=== PATIENT | female | born 1935 | race Two or more races ===

== ENCOUNTER 2018-01-29 18:59 | Inpatient (IN) | payer MEDICAID ==
[~2018-01-29] VITALS: Ht 157.5 cm; Wt 54.4 kg
[2018-01-29] MEDS ORDERED: LISINOPRIL5 MG ORAL (19:12)
[2018-01-29] MEDS ORDERED: ASPIRIN81 MG ORAL (19:12)
[2018-01-29] MEDS ORDERED: METOPROLOL TAR100 M1 ORAL (19:12)
[2018-01-29] MEDS ORDERED: LIPITOR40 MG ORAL (19:12)
[2018-01-29] MEDS ORDERED: AMLODIPINE BESY10 MG ORAL (19:12)
[2018-01-29] MEDS ORDERED: CLOPIDOGREL75 MG ORAL (19:12)
--- NOTE | 2018-01-29 19:43 | Emergency Room Report ---
History of Present Illness General Chief Complaint: Syncope Source: Patient, Family Member, EMS Present Illness HPI 82-year-old female with pmhx of stroke with left-sided weakness p/w syncopal episode. Patient vomited once before syncope Pt states feeling lightheadedness/nauseous before event. witnessed, <30 sec, didnt hit the ground, pt was in her wheelchair Denies sob, palpitations, or chest pain before event. Daughter states that she was in her normal state of health this afternoon Currently patient is only complaining of nausea, and epigastric pain Allergies: Coded Allergies: No Known Allergies (Unverified , 01/29/18) Patient History Past Medical History: see triage record Past Surgical History: none Pertinent Family History: none Reviewed Nursing Documentation: PMH: Agreed, PSxH: Agreed Nursing Documentation-PMH Hx Hypertension: Yes Hx Cerebrovascular Accident: Yes - LEFT SIDED DEFICIT Review of Systems All Other Systems: negative except mentioned in HPI Physical Exam Vital Signs Date Time Temp Pulse Resp B/P (MAP) Pulse Ox O2 Delivery O2 Flow Rate FiO2 01/29/18 19:02 98.1 104 16 122/72 98 Room Air 98.1 Sp02 EP Interpretation: reviewed, normal General Appearance: mild distress, thin, Chronically Ill Head: normocephalic, atraumatic Eyes: bilateral eye normal inspection, bilateral eye PERRL, bilateral eye EOMI ENT: normal ENT inspection, normal pharynx, normal voice, moist mucus membranes Neck: normal inspection, full range of motion, supple Respiratory: normal inspection, lungs clear, normal breath sounds, no respiratory distress, no retraction, no wheezing, speaking full sentences, chest symmetrical Cardiovascular #1: normal inspection, regular rate, rhythm, no edema, normal capillary refill Cardiovascular #2: 2+ radial (R), 2+ radial (L) Gastrointestinal: other - epigastric tenderness no guarding or rigidity Musculoskeletal: normal inspection, back normal, normal range of motion, non- tender Neurologic: other - aox2 moves R side spont Psychiatric: normal inspection, judgement/insight normal, memory normal Skin: normal inspection, normal color, no rash, warm/dry, well hydrated, normal turgor Medical Decision Making Diagnostic Impression: Primary Impression: Syncope Additional Impression: Vomiting ER Course 82-year-old female with syncopal episode DDX: Vasovagal vs. orthostatic / hypovolemic/dehydration vs. cardiac arrhythmia (SVT , Afib) vs. cardiac (, ACS) vs. PE vs. metabolic (hypoglycemia, hypoxia), vs neuro (seizure, CVA, intracranial bleed) Plan: bgm, cbc, bmp, ekg, cxr consider IVF ER course: Patient has remained stable during ED stay. given zofran. No further syncopal episodes Disposition: Patient requires admission to telemetry. D/W hospitalist Dr Lima Please note that this Emergency Department Report was dictated using UCROOallergist/immunologist technology software, occasionally this can lead to erroneous entry secondary to interpretation by the dictation equipment EKG Diagnostic Results EP Interpretation: Yes Rate: normal Rhythm: NSR ST Segments: TW flattening V2 V3 ASA given to patient: No Rhythm Strip EP Interpretation: Yes Rate: 70 Rhythm: NSR, no PVCs, no ectopy Chest X-ray CXR: Ordered: Yes 1 view Indication: Syncope EP interpretation: Yes Interpretation: No consolidation, no effusion, no PTX, no acute cardiopulmonary disease Impression: No acute disease Electronically signed by Akash Ga MD Laboratory Tests Test 01/29/18 20:40 01/29/18 21:48 01/30/18 10:30 White Blood Count 15.4 K/UL (4.8-10.8) H 13.0 K/UL (4.8-10.8) H Red Blood Count 4.01 M/UL (4.20-5.40) L 3.76 M/UL (4.20-5.40) L Hemoglobin 13.2 G/DL (12.0-16.0) 12.0 G/DL (12.0-16.0) Hematocrit 35.2 % (37.0-47.0) L 33.2 % (37.0-47.0) L Mean Corpuscular Volume 88 FL (80-99) 88 FL (80-99) Mean Corpuscular Hemoglobin 32.9 PG (27.0-31.0) H 31.9 PG (27.0-31.0) H Mean Corpuscular Hemoglobin Concent 37.5 G/DL (32.0-36.0) H 36.0 G/DL (32.0-36.0) Red Cell Distribution Width 11.2 % (11.6-14.8) L 11.4 % (11.6-14.8) L Platelet Count 317 K/UL (150-450) 289 K/UL (150-450) Mean Platelet Volume 7.9 FL (6.5-10.1) 7.7 FL (6.5-10.1) Neutrophils (%) (Auto) % (45.0-75.0) 82.8 % (45.0-75.0) H Lymphocytes (%) (Auto) % (20.0-45.0) 11.3 % (20.0-45.0) L Monocytes (%) (Auto) % (1.0-10.0) 5.1 % (1.0-10.0) Eosinophils (%) (Auto) % (0.0-3.0) 0.2 % (0.0-3.0) Basophils (%) (Auto) % (0.0-2.0) 0.6 % (0.0-2.0) Differential Total Cells Counted 100 Neutrophils % (Manual) 87 % (45-75) H Lymphocytes % (Manual) 9 % (20-45) L Monocytes % (Manual) 4 % (1-10) Eosinophils % (Manual) 0 % (0-3) Basophils % (Manual) 0 % (0-2) Band Neutrophils 0 % (0-8) Platelet Estimate Adequate Platelet Morphology Normal Red Blood Cell Morphology Normal Sodium Level 138 MMOL/L (136-145) 140 MMOL/L (136-145) Potassium Level 4.6 MMOL/L (3.5-5.1) 4.5 MMOL/L (3.5-5.1) Chloride Level 104 MMOL/L (98-107) 104 MMOL/L (98-107) Carbon Dioxide Level 24 MMOL/L (21-32) 26 MMOL/L (21-32) Anion Gap 10 mmol/L (5-15) 10 mmol/L (5-15) Blood Urea Nitrogen 19 mg/dL (7-18) H 17 mg/dL (7-18) Creatinine 0.8 MG/DL (0.55-1.30) 1.0 MG/DL (0.55-1.30) Estimate Glomerular Filtration Rate mL/min (>60) mL/min (>60) Glucose Level 153 MG/DL (74-106) H 151 MG/DL (74-106) H Calcium Level 9.5 MG/DL (8.5-10.1) 9.5 MG/DL (8.5-10.1) Total Bilirubin 0.6 MG/DL (0.2-1.0) 0.5 MG/DL (0.2-1.0) Aspartate Amino Transferase (AST) 55 U/L (15-37) H 28 U/L (15-37) Alanine Aminotransferase (ALT) 84 U/L (12-78) H 66 U/L (12-78) Alkaline Phosphatase 79 U/L (46-116) 75 U/L (46-116) Troponin I 0.008 ng/mL (0.000-0.056) 0.019 ng/mL (0.000-0.056) Pro-B-Type Natriuretic Peptide 433 pg/mL (0-125) H Total Protein 7.3 G/DL (6.4-8.2) 7.0 G/DL (6.4-8.2) Albumin 3.0 G/DL (3.4-5.0) L 2.9 G/DL (3.4-5.0) L Globulin 4.3 g/dL 4.1 g/dL Albumin/Globulin Ratio 0.7 (1.0-2.7) L 0.7 (1.0-2.7) L Urine Color Yellow Urine Appearance Slightly cloudy Urine pH 5 (4.5-8.0) Urine Specific [place] 1.015 (1.005-1.035) Urine Protein 1+ (NEGATIVE) H Urine Glucose (UA) Negative (NEGATIVE) Urine Ketones Negative (NEGATIVE) Urine Occult Blood 1+ (NEGATIVE) H Urine Nitrite Positive (NEGATIVE) H Urine Bilirubin Negative (NEGATIVE) Urine Urobilinogen Normal MG/DL (0.0-1.0) Urine Leukocyte Esterase 3+ (NEGATIVE) H Urine RBC 0-2 /HPF (0 - 2) Urine WBC 2-4 /HPF (0 - 2) Urine Squamous Epithelial Cells Few /LPF (NONE/OCC) Urine Amorphous Sediment Few /LPF (NONE) H Urine Bacteria Few /HPF (NONE) Prothrombin Time 10.7 SEC (9.30-11.50) Prothrombin Time INR 1.0 (0.9-1.1) PTT 25 SEC (23-33) Triglycerides Level 74 MG/DL (30-150) Cholesterol Level 79 MG/DL (< 200) LDL Cholesterol 39 mg/dL (<100) HDL Cholesterol 31 MG/DL (40-60) L Cholesterol/HDL Ratio 2.5 (3.3-4.4) L Thyroid Stimulating Hormone (TSH) 1.109 uiU/mL (0.358-3.740) Last Vital Signs Date Time Temp Pulse Resp B/P (MAP) Pulse Ox O2 Delivery O2 Flow Rate FiO2 01/29/18 19:02 98.1 104 16 122/72 98 Room Air 98.1 Disposition: ADMITTED INPATIENT Condition: Serious Akash Ga M.D. Jan 29, 2018 19:43
[2018-01-29 21:01] LABS: HEMATOCRIT 35.2 % (37.0-47.0); HEMOGLOBIN 13.2 G/DL (12.0-16.0); MEAN CORPUSCULAR VOLUME 88 FL (80-99); PLATELET COUNT 317 K/UL (150-450); RED BLOOD COUNT 4.01 M/UL (4.20-5.40); RED CELL DISTRIBUTION WIDTH 11.2 % (11.6-14.8); WHITE BLOOD COUNT 15.4 K/UL (4.8-10.8)
[2018-01-29 21:08] LABS: ANION GAP 10 mmol/L (5-15); BLOOD UREA NITROGEN 19 mg/dL (7-18); CALCIUM 9.5 MG/DL (8.5-10.1); CARBON DIOXIDE 24 MMOL/L (21-32); CHLORIDE 104 MMOL/L (98-107); CREATININE 0.8 MG/DL (0.55-1.30); POTASSIUM 4.6 MMOL/L (3.5-5.1); SODIUM 138 MMOL/L (136-145)
[2018-01-29 21:19] LABS: ALANINE AMINOTRANSFERASE 84 U/L (12-78); ALBUMIN/GLOBULIN RATIO 0.7 (1.0-2.7); ALKALINE PHOSPHATASE 79 U/L (46-116); ASPARTATE AMINO TRANSFERASE 55 U/L (15-37); BILIRUBIN,TOTAL 0.6 MG/DL (0.2-1.0)
[2018-01-29] MEDS ORDERED: Albuterol/Ipratropium 3ml neb HHN PRN (21:30)
[2018-01-29] MEDS ORDERED: Nitroglycerin Subl 0.4mg tab SL PRN (21:30)
[2018-01-29] MEDS ORDERED: LORazepam Inj 2mg/ml 1ml IV PRN (21:30)
[2018-01-29] MEDS ORDERED: Morphine Sulfate 2mg/ml Inj IVP PRN (21:30)
[2018-01-29] MEDS ORDERED: Mylanta II UD 30ml ORAL PRN (21:30)
[2018-01-29] MEDS ORDERED: Miralax 17gm pkt ORAL PRN (21:30)
[2018-01-29 22:27] LABS: BILIRUBIN, URINE NEGATIVE (NEGATIVE); GLUCOSE, URINE (UA) NEGATIVE (NEGATIVE); KETONES,URINE NEGATIVE (NEGATIVE); LEUKOCYTE ESTERASE ,URINE 3+ (NEGATIVE); NITRITE,URINE POSITIVE (NEGATIVE); PH,URINE 5 (4.5-8.0); PROTEIN,URINE 1+ (NEGATIVE); UROBILINOGEN,URINE NORMAL MG/DL (0.0-1.0)
[2018-01-29 22:32] LABS: COLOR,URINE YELLOW
[2018-01-29 22:33] LABS: APPEARANCE,URINE SLIGHTLY CLOUDY
[2018-01-30 00:26] VITALS: BP 115/49
[2018-01-30 03:50] VITALS: BP 122/47
[2018-01-30 04:50] VITALS: BP 127/78
[2018-01-30] MEDS: Heparin 5000 units/ml inj SUBQ SCH ×2 (09:00→21:19)
[2018-01-30] MEDS: Lisinopril 2.5mg tab ORAL SCH (09:00)
--- NOTE | 2018-01-30 09:13 | History and Physical ---
History of Present Illness General Date patient seen: Jan 30, 2018 Reason for Hospitalization: Syncope Present Illness HPI 82-year-old female with pmhx of stroke with left-sided weakness BIBA with CC of syncopal episode. Patient vomited once before syncope. Pt states feeling lightheadedness/nauseous before event. Currently patient is only complaining of nausea, and epigastric pain. Allergies: Coded Allergies: No Known Allergies (Unverified , 01/29/18) Medication History Scheduled Amlodipine Besylate* (Amlodipine Besylate*), 10 MG ORAL DAILY, (Reported) Aspirin* (Aspirin*), 81 MG ORAL DAILY, (Reported) Atorvastatin Calcium* (Lipitor*), 40 MG ORAL BEDTIME, (Reported) Clopidogrel* (Clopidogrel*), 75 MG ORAL DAILY, (Reported) Lisinopril (Lisinopril*), 5 MG ORAL DAILY, (Reported) Metoprolol Tartrate* (Metoprolol Tartrate*), 100 MG ORAL EVERY 12 HOURS, ( Reported) Patient History Healthcare decision maker Resuscitation status Advanced Directive on File Past Medical/Surgical History Past Medical/Surgical History: (1) History of CVA (cerebrovascular accident) (2) Hypertension Review of Systems Constitutional: Reports: malaise Eye: Reports: no symptoms ENT: Reports: no symptoms Respiratory: Reports: no symptoms Physical Exam General Appearance: cachetic Lines, tubes and drains: peripheral HEENT: normocephalic, atraumatic Neck: non-tender, normal alignment Respiratory/Chest: chest wall non-tender, lungs clear Breasts: no masses Cardiovascular/Chest: normal peripheral pulses Abdomen: normal bowel sounds, non tender Genitourinary/Rectal: normal rectal exam Extremities: normal range of motion Skin Exam: normal pigmentation 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 Last 24 Hour Vital Signs Date Time Temp Pulse Resp B/P (MAP) Pulse Ox O2 Delivery O2 Flow Rate FiO2 01/30/18 04:50 98.2 102 18 127/78 98 Room Air 98.2 01/30/18 04:45 93 01/30/18 04:35 98.1 85 17 122/47 96 Room Air 98.1 01/30/18 03:50 85 17 122/47 96 Room Air 01/30/18 00:26 98.1 67 18 115/49 98 Room Air 98.1 01/29/18 19:02 98.1 104 16 122/72 98 Room Air 98.1 Intake and Output 01/29/18 01/30/18 19:00 07:00 Intake Total 0 ml Balance 0 ml Intake Oral 0 ml # Voids 4 Laboratory Tests Test 01/29/18 20:40 01/29/18 21:48 White Blood Count 15.4 K/UL (4.8-10.8) H Red Blood Count 4.01 M/UL (4.20-5.40) L Hemoglobin 13.2 G/DL (12.0-16.0) Hematocrit 35.2 % (37.0-47.0) L Mean Corpuscular Volume 88 FL (80-99) Mean Corpuscular Hemoglobin 32.9 PG (27.0-31.0) H Mean Corpuscular Hemoglobin Concent 37.5 G/DL (32.0-36.0) H Red Cell Distribution Width 11.2 % (11.6-14.8) L Platelet Count 317 K/UL (150-450) Mean Platelet Volume 7.9 FL (6.5-10.1) Neutrophils (%) (Auto) % (45.0-75.0) Lymphocytes (%) (Auto) % (20.0-45.0) Monocytes (%) (Auto) % (1.0-10.0) Eosinophils (%) (Auto) % (0.0-3.0) Basophils (%) (Auto) % (0.0-2.0) Differential Total Cells Counted 100 Neutrophils % (Manual) 87 % (45-75) H Lymphocytes % (Manual) 9 % (20-45) L Monocytes % (Manual) 4 % (1-10) Eosinophils % (Manual) 0 % (0-3) Basophils % (Manual) 0 % (0-2) Band Neutrophils 0 % (0-8) Platelet Estimate Adequate Platelet Morphology Normal Red Blood Cell Morphology Normal Sodium Level 138 MMOL/L (136-145) Potassium Level 4.6 MMOL/L (3.5-5.1) Chloride Level 104 MMOL/L (98-107) Carbon Dioxide Level 24 MMOL/L (21-32) Anion Gap 10 mmol/L (5-15) Blood Urea Nitrogen 19 mg/dL (7-18) H Creatinine 0.8 MG/DL (0.55-1.30) Estimat Glomerular Filtration Rate mL/min (>60) Glucose Level 153 MG/DL (74-106) H Calcium Level 9.5 MG/DL (8.5-10.1) Total Bilirubin 0.6 MG/DL (0.2-1.0) Aspartate Amino Transf (AST/SGOT) 55 U/L (15-37) H Alanine Aminotransferase (ALT/SGPT) 84 U/L (12-78) H Alkaline Phosphatase 79 U/L (46-116) Troponin I 0.008 ng/mL (0.000-0.056) Pro-B-Type Natriuretic Peptide 433 pg/mL (0-125) H Total Protein 7.3 G/DL (6.4-8.2) Albumin 3.0 G/DL (3.4-5.0) L Globulin 4.3 g/dL Albumin/Globulin Ratio 0.7 (1.0-2.7) L Urine Color Yellow Urine Appearance Slightly cloudy Urine pH 5 (4.5-8.0) Urine Specific [place] 1.015 (1.005-1.035) Urine Protein 1+ (NEGATIVE) H Urine Glucose (UA) Negative (NEGATIVE) Urine Ketones Negative (NEGATIVE) Urine Occult Blood 1+ (NEGATIVE) H Urine Nitrite Positive (NEGATIVE) H Urine Bilirubin Negative (NEGATIVE) Urine Urobilinogen Normal MG/DL (0.0-1.0) Urine Leukocyte Esterase 3+ (NEGATIVE) H Urine RBC 0-2 /HPF (0 - 2) Urine WBC 2-4 /HPF (0 - 2) Urine Squamous Epithelial Cells Few /LPF (NONE/OCC) Urine Amorphous Sediment Few /LPF (NONE) H Urine Bacteria Few /HPF (NONE) Height (Feet): 5 Height (Inches): 2.00 Weight (Pounds): 120 Medications Current Medications Medications (Trade) Dose Ordered Sig/[place] Route PRN Reason Start Time Stop Time Status Last Admin Dose Admin Acetaminophen (Tylenol) 650 mg Q4H PRN ORAL fever 01/29/18 21:30 02/28/18 21:29 Al Hydroxide/Mg Hydroxide (Mylanta II) 30 ml Q6H PRN ORAL dyspepsia 01/29/18 21:30 02/28/18 21:29 Albuterol/ Ipratropium (Albuterol/ Ipratropium) 3 ml EVERY 4 HOURS PRN HHN Shortness of Breath 01/29/18 21:30 02/03/18 21:29 Amlodipine Besylate (Norvasc) 10 mg DAILY ORAL 01/30/18 09:00 03/01/18 08:59 Atorvastatin Calcium (Lipitor) 40 mg BEDTIME ORAL 01/30/18 21:00 03/01/18 20:59 Clopidogrel Bisulfate (Plavix) 75 mg DAILY ORAL 01/30/18 09:00 03/01/18 08:59 Dextrose (Dextrose 50%) STAT PRN IV Hypoglycemia 01/29/18 21:30 02/28/18 21:29 Heparin Sodium (Porcine) (Heparin 5000 units/ml) 5,000 units EVERY 12 HOURS SUBQ 01/30/18 09:00 03/01/18 08:59 Lisinopril (Zestril) 5 mg DAILY ORAL 01/30/18 09:00 03/01/18 08:59 Lorazepam (Ativan 2mg/ml 1ml) 0.5 mg Q4H PRN IV For Anxiety 01/29/18 21:30 02/05/18 21:29 Metoprolol Tartrate (Lopressor) 100 mg EVERY 12 HOURS ORAL 01/30/18 09:00 03/01/18 08:59 Morphine Sulfate (Morphine Sulfate) 1 mg EVERY 4 HOURS PRN IVP For Pain 7-10 01/29/18 21:30 02/05/18 21:29 Nitroglycerin (Ntg) 0.4 mg Q5M X 3 DOSES PRN SL Prn Chest Pain 01/29/18 21:30 02/28/18 21:29 Ondansetron HCl (Zofran) 4 mg Q6H PRN IVP Nausea & Vomiting 01/29/18 21:30 02/28/18 21:29 Polyethylene Glycol (Miralax) 17 gm HSPRN PRN ORAL Constipation 01/29/18 21:30 02/28/18 21:29 Temazepam (Restoril) 15 mg HSPRN PRN ORAL Insomnia 01/29/18 21:30 02/05/18 21:29 Assessment/Plan Problem List: (1) Syncope ICD Codes: R55 - Syncope and collapse SNOMED: 196403683 (2) Vomiting ICD Codes: R11.10 - Vomiting, unspecified SNOMED: 693031936 (3) Epigastric pain ICD Codes: R10.13 - Epigastric pain SNOMED: 75394633 (4) Hypertension ICD Codes: I10 - Essential (primary) hypertension SNOMED: 80557596 (5) History of CVA (cerebrovascular accident) ICD Codes: Z86.73 - Personal history of transient ischemic attack (TIA), and cerebral infarction without residual deficits SNOMED: 305186397 Assessment/Plan telemetry monitoring check echo, doppler of carotid artery cardio to see GI evaluation symptomatic treatment. ID evaluation for possible UTI TOBIAS CERRATO Jan 30, 2018 09:13
--- NOTE | 2018-01-30 10:36 | Diagnostic Imaging Report ---
Indication: Chest pain Comparison: None A single view chest radiograph was obtained. Findings: No definite infiltrate or pulmonary vascular congestion identified. The heart is borderline enlarged. The aorta is mildly enlarged consistent with atherosclerotic vascular disease. The bones are osteopenic. Impression: No acute disease
[2018-01-30 10:53] LABS: BASOPHILS % (AUTO) 0.6 % (0.0-2.0); EOSINOPHILS % (AUTO) 0.2 % (0.0-3.0); HEMATOCRIT 33.2 % (37.0-47.0); LYMPHOCYTES % (AUTO) 11.3 % (20.0-45.0); MEAN CORPUSCULAR VOLUME 88 FL (80-99); MONOCYTES % (AUTO) 5.1 % (1.0-10.0); NEUTROPHILS % (AUTO) 82.8 % (45.0-75.0); PLATELET COUNT 289 K/UL (150-450); RED BLOOD COUNT 3.76 M/UL (4.20-5.40); RED CELL DISTRIBUTION WIDTH 11.4 % (11.6-14.8)
[2018-01-30 11:29] LABS: ALANINE AMINOTRANSFERASE 66 U/L (12-78); ALBUMIN 2.9 G/DL (3.4-5.0); ALBUMIN/GLOBULIN RATIO 0.7 (1.0-2.7); ALKALINE PHOSPHATASE 75 U/L (46-116); ANION GAP 10 mmol/L (5-15); ASPARTATE AMINO TRANSFERASE 28 U/L (15-37); BILIRUBIN,TOTAL 0.5 MG/DL (0.2-1.0); BLOOD UREA NITROGEN 17 mg/dL (7-18); CALCIUM 9.5 MG/DL (8.5-10.1); CARBON DIOXIDE 26 MMOL/L (21-32); CHLORIDE 104 MMOL/L (98-107); CHOLESTEROL 79 MG/DL (< 200); HDL CHOLESTEROL 31 MG/DL (40-60); POTASSIUM 4.5 MMOL/L (3.5-5.1); SODIUM 140 MMOL/L (136-145); TRIGLYCERIDES 74 MG/DL (30-150)
--- NOTE | 2018-01-30 11:33 | Cardiology Progress Note ---
Assessment/Plan Assessment/Plan [id number] vasovagal syncoep recetn cva await echo if neg ok to dc home later today get orthostatic vitals lying to sitting position Objective Last 24 Hour Vital Signs Date Time Temp Pulse Resp B/P (MAP) Pulse Ox O2 Delivery O2 Flow Rate FiO2 01/30/18 09:00 120 111/65 01/30/18 09:00 111/65 01/30/18 09:00 120 111/65 01/30/18 04:50 98.2 102 18 127/78 98 Room Air 98.2 01/30/18 04:45 93 01/30/18 04:35 98.1 85 17 122/47 96 Room Air 98.1 01/30/18 03:50 85 17 122/47 96 Room Air 01/30/18 00:26 98.1 67 18 115/49 98 Room Air 98.1 01/29/18 19:02 98.1 104 16 122/72 98 Room Air 98.1 Intake and Output 01/29/18 01/30/18 19:00 07:00 Intake Total 0 ml Balance 0 ml Intake Oral 0 ml # Voids 4 Laboratory Tests Test 01/29/18 20:40 01/29/18 21:48 01/30/18 10:30 White Blood Count 15.4 K/UL (4.8-10.8) H 13.0 K/UL (4.8-10.8) H Red Blood Count 4.01 M/UL (4.20-5.40) L 3.76 M/UL (4.20-5.40) L Hemoglobin 13.2 G/DL (12.0-16.0) 12.0 G/DL (12.0-16.0) Hematocrit 35.2 % (37.0-47.0) L 33.2 % (37.0-47.0) L Mean Corpuscular Volume 88 FL (80-99) 88 FL (80-99) Mean Corpuscular Hemoglobin 32.9 PG (27.0-31.0) H 31.9 PG (27.0-31.0) H Mean Corpuscular Hemoglobin Concent 37.5 G/DL (32.0-36.0) H 36.0 G/DL (32.0-36.0) Red Cell Distribution Width 11.2 % (11.6-14.8) L 11.4 % (11.6-14.8) L Platelet Count 317 K/UL (150-450) 289 K/UL (150-450) Mean Platelet Volume 7.9 FL (6.5-10.1) 7.7 FL (6.5-10.1) Neutrophils (%) (Auto) % (45.0-75.0) 82.8 % (45.0-75.0) H Lymphocytes (%) (Auto) % (20.0-45.0) 11.3 % (20.0-45.0) L Monocytes (%) (Auto) % (1.0-10.0) 5.1 % (1.0-10.0) Eosinophils (%) (Auto) % (0.0-3.0) 0.2 % (0.0-3.0) Basophils (%) (Auto) % (0.0-2.0) 0.6 % (0.0-2.0) Differential Total Cells Counted 100 Neutrophils % (Manual) 87 % (45-75) H Lymphocytes % (Manual) 9 % (20-45) L Monocytes % (Manual) 4 % (1-10) Eosinophils % (Manual) 0 % (0-3) Basophils % (Manual) 0 % (0-2) Band Neutrophils 0 % (0-8) Platelet Estimate Adequate Platelet Morphology Normal Red Blood Cell Morphology Normal Sodium Level 138 MMOL/L (136-145) Pending Potassium Level 4.6 MMOL/L (3.5-5.1) Pending Chloride Level 104 MMOL/L (98-107) Pending Carbon Dioxide Level 24 MMOL/L (21-32) Pending Anion Gap 10 mmol/L (5-15) Blood Urea Nitrogen 19 mg/dL (7-18) H Pending Creatinine 0.8 MG/DL (0.55-1.30) Pending Estimat Glomerular Filtration Rate mL/min (>60) Pending Glucose Level 153 MG/DL (74-106) H Pending Calcium Level 9.5 MG/DL (8.5-10.1) Pending Total Bilirubin 0.6 MG/DL (0.2-1.0) Pending Aspartate Amino Transf (AST/SGOT) 55 U/L (15-37) H Pending Alanine Aminotransferase (ALT/SGPT) 84 U/L (12-78) H Pending Alkaline Phosphatase 79 U/L (46-116) Pending Troponin I 0.008 ng/mL (0.000-0.056) Pro-B-Type Natriuretic Peptide 433 pg/mL (0-125) H Total Protein 7.3 G/DL (6.4-8.2) Pending Albumin 3.0 G/DL (3.4-5.0) L Pending Globulin 4.3 g/dL Pending Albumin/Globulin Ratio 0.7 (1.0-2.7) L Urine Color Yellow Urine Appearance Slightly cloudy Urine pH 5 (4.5-8.0) Urine Specific [place] 1.015 (1.005-1.035) Urine Protein 1+ (NEGATIVE) H Urine Glucose (UA) Negative (NEGATIVE) Urine Ketones Negative (NEGATIVE) Urine Occult Blood 1+ (NEGATIVE) H Urine Nitrite Positive (NEGATIVE) H Urine Bilirubin Negative (NEGATIVE) Urine Urobilinogen Normal MG/DL (0.0-1.0) Urine Leukocyte Esterase 3+ (NEGATIVE) H Urine RBC 0-2 /HPF (0 - 2) Urine WBC 2-4 /HPF (0 - 2) Urine Squamous Epithelial Cells Few /LPF (NONE/OCC) Urine Amorphous Sediment Few /LPF (NONE) H Urine Bacteria Few /HPF (NONE) Prothrombin Time 10.7 SEC (9.30-11.50) Prothromb Time International Ratio 1.0 (0.9-1.1) Activated Partial Thromboplast Time 25 SEC (23-33) Triglycerides Level Pending Cholesterol Level Pending LDL Cholesterol Pending HDL Cholesterol Pending Cholesterol/HDL Ratio Pending Thyroid Stimulating Hormone (TSH) Pending CHELSIE VASQUES Jan 30, 2018 11:33
--- NOTE | 2018-01-30 13:04 | Neurology Progress Note ---
Objective Physical Exam Last Vital Signs Date Time Temp Pulse Resp B/P (MAP) Pulse Ox O2 Delivery O2 Flow Rate FiO2 01/30/18 09:00 120 111/65 01/30/18 04:50 98.2 18 98 Room Air 98.2 Laboratory Tests Test 01/29/18 20:40 01/29/18 21:48 01/30/18 10:30 White Blood Count 15.4 K/UL (4.8-10.8) H 13.0 K/UL (4.8-10.8) H Red Blood Count 4.01 M/UL (4.20-5.40) L 3.76 M/UL (4.20-5.40) L Hemoglobin 13.2 G/DL (12.0-16.0) 12.0 G/DL (12.0-16.0) Hematocrit 35.2 % (37.0-47.0) L 33.2 % (37.0-47.0) L Mean Corpuscular Volume 88 FL (80-99) 88 FL (80-99) Mean Corpuscular Hemoglobin 32.9 PG (27.0-31.0) H 31.9 PG (27.0-31.0) H Mean Corpuscular Hemoglobin Concent 37.5 G/DL (32.0-36.0) H 36.0 G/DL (32.0-36.0) Red Cell Distribution Width 11.2 % (11.6-14.8) L 11.4 % (11.6-14.8) L Platelet Count 317 K/UL (150-450) 289 K/UL (150-450) Mean Platelet Volume 7.9 FL (6.5-10.1) 7.7 FL (6.5-10.1) Neutrophils (%) (Auto) % (45.0-75.0) 82.8 % (45.0-75.0) H Lymphocytes (%) (Auto) % (20.0-45.0) 11.3 % (20.0-45.0) L Monocytes (%) (Auto) % (1.0-10.0) 5.1 % (1.0-10.0) Eosinophils (%) (Auto) % (0.0-3.0) 0.2 % (0.0-3.0) Basophils (%) (Auto) % (0.0-2.0) 0.6 % (0.0-2.0) Differential Total Cells Counted 100 Neutrophils % (Manual) 87 % (45-75) H Lymphocytes % (Manual) 9 % (20-45) L Monocytes % (Manual) 4 % (1-10) Eosinophils % (Manual) 0 % (0-3) Basophils % (Manual) 0 % (0-2) Band Neutrophils 0 % (0-8) Platelet Estimate Adequate Platelet Morphology Normal Red Blood Cell Morphology Normal Sodium Level 138 MMOL/L (136-145) 140 MMOL/L (136-145) Potassium Level 4.6 MMOL/L (3.5-5.1) 4.5 MMOL/L (3.5-5.1) Chloride Level 104 MMOL/L (98-107) 104 MMOL/L (98-107) Carbon Dioxide Level 24 MMOL/L (21-32) 26 MMOL/L (21-32) Anion Gap 10 mmol/L (5-15) 10 mmol/L (5-15) Blood Urea Nitrogen 19 mg/dL (7-18) H 17 mg/dL (7-18) Creatinine 0.8 MG/DL (0.55-1.30) 1.0 MG/DL (0.55-1.30) Estimat Glomerular Filtration Rate mL/min (>60) mL/min (>60) Glucose Level 153 MG/DL (74-106) H 151 MG/DL (74-106) H Calcium Level 9.5 MG/DL (8.5-10.1) 9.5 MG/DL (8.5-10.1) Total Bilirubin 0.6 MG/DL (0.2-1.0) 0.5 MG/DL (0.2-1.0) Aspartate Amino Transf (AST/SGOT) 55 U/L (15-37) H 28 U/L (15-37) Alanine Aminotransferase (ALT/SGPT) 84 U/L (12-78) H 66 U/L (12-78) Alkaline Phosphatase 79 U/L (46-116) 75 U/L (46-116) Troponin I 0.008 ng/mL (0.000-0.056) 0.019 ng/mL (0.000-0.056) Pro-B-Type Natriuretic Peptide 433 pg/mL (0-125) H Total Protein 7.3 G/DL (6.4-8.2) 7.0 G/DL (6.4-8.2) Albumin 3.0 G/DL (3.4-5.0) L 2.9 G/DL (3.4-5.0) L Globulin 4.3 g/dL 4.1 g/dL Albumin/Globulin Ratio 0.7 (1.0-2.7) L 0.7 (1.0-2.7) L Urine Color Yellow Urine Appearance Slightly cloudy Urine pH 5 (4.5-8.0) Urine Specific [place] 1.015 (1.005-1.035) Urine Protein 1+ (NEGATIVE) H Urine Glucose (UA) Negative (NEGATIVE) Urine Ketones Negative (NEGATIVE) Urine Occult Blood 1+ (NEGATIVE) H Urine Nitrite Positive (NEGATIVE) H Urine Bilirubin Negative (NEGATIVE) Urine Urobilinogen Normal MG/DL (0.0-1.0) Urine Leukocyte Esterase 3+ (NEGATIVE) H Urine RBC 0-2 /HPF (0 - 2) Urine WBC 2-4 /HPF (0 - 2) Urine Squamous Epithelial Cells Few /LPF (NONE/OCC) Urine Amorphous Sediment Few /LPF (NONE) H Urine Bacteria Few /HPF (NONE) Prothrombin Time 10.7 SEC (9.30-11.50) Prothromb Time International Ratio 1.0 (0.9-1.1) Activated Partial Thromboplast Time 25 SEC (23-33) Triglycerides Level 74 MG/DL (30-150) Cholesterol Level 79 MG/DL (< 200) LDL Cholesterol 39 mg/dL (<100) HDL Cholesterol 31 MG/DL (40-60) L Cholesterol/HDL Ratio 2.5 (3.3-4.4) L Thyroid Stimulating Hormone (TSH) 1.109 uiU/mL (0.358-3.740) Impression/Recommendations Recommendations #[id number] [facility] Jan 30, 2018 13:04
--- NOTE | 2018-01-30 16:13 | Cardiology Report ---
APPROVED REPORT EXAM: Two-dimensional and M-mode echocardiogram with Doppler and color Doppler. INDICATION Left ventricular function M-Mode DIMENSIONS IVSd1.0 (0.7-1.1cm)Left Atrium (MM)3.3 (1.6-4.0cm) LVDd2.3 (3.5-5.6cm)Aortic Root2.1 (2.0-3.7cm) PWd1.2 (0.7-1.1cm)Aortic Cusp Exc.1.4 (1.5-2.0cm) LVDs0.8 (2.5-4.0cm) PWs1.1 cm Normal left ventricular chamber size, systolic function and wall motion. Left ventricular ejection fraction estimated to be 60-65%. Moderate left ventricular hypertrophy. No evidence of pericardial or pleural effusion. All other cardiac chamber sizes are within normal limits. Focal aortic valve sclerosis with adequate cusp excursion. Thickened mitral valve leaflets with normal excursion. Mild mitral annulus and aortic root calcification. Pulmonic valve not well visualized. Normal tricuspid valve structure. IVC is not obtainable. A color flow and spectral Doppler study was performed and revealed: Moderate aortic regurgitation.Aortic valve PG 23, MG 12 mmhg No mitral regurgitation. Mitral diastolic velocities suggest reduced left ventricular relaxation c/w diastolic dysfunction grade 1. Mild tricuspid regurgitation. Tricuspid systolic velocities suggests peak right ventricular systolic pressure of 36 mmHg Consistent with moderate pulmonary hypertension. Pulmonic regurgitation present.
--- NOTE | 2018-01-30 16:26 | Cardiology Report ---
APPROVED REPORT EKG Measurement Heart [id number] Normal sinus rhythm Cannot rule out Anterior infarct, age undetermined Abnormal ECG
--- NOTE | 2018-01-30 17:18 | GI Initial Consult Note ---
Yoon Leos N.PChencho 01/30/18 1717: History of Present Illness General Date patient seen: Jan 30, 2018 Time patient seen: 17:13 Reason for Hospitalization: Syncope Referring physician: TOBIAS PALM Reason for Consultation: VOMITING Present Illness HPI 82-year-old female with pmhx of stroke with left-sided weakness p/w syncopal episode. Patient vomited once before syncope Pt states feeling lightheadedness/nauseous before event. witnessed, <30 sec, didnt hit the ground, pt was in her wheelchair Denies sob, palpitations, or chest pain before event. Daughter states that she was in her normal state of health this afternoon Currently patient is only complaining of nausea, and epigastric pain. GI consulted for episode of vomiting. Pt seen, asleep NAD with no active s/sx of N/V/D. Family member at bedside, discussed previous incident where patient had become light headed and nauseous prior to her episode of vomiting. Denied any hematemesis or coffee grounds. Unknown history of endoscopy / colonoscopies. Home Meds Reported Medications Metoprolol Tartrate* (METOPROLOL TARTRATE*) 100 Mg Tablet, 100 MG ORAL EVERY 12 HOURS, TAB 01/29/18 Lisinopril (LISINOPRIL*) 5 Mg Tablet, 5 MG ORAL DAILY, TAB 01/29/18 Clopidogrel* (CLOPIDOGREL*) 75 Mg Tablet, 75 MG ORAL DAILY, TAB 01/29/18 Aspirin* (ASPIRIN*) 81 Mg Tab.chew, 81 MG ORAL DAILY, TAB 01/29/18 Amlodipine Besylate* (AMLODIPINE BESYLATE*) 10 Mg Tablet, 10 MG ORAL DAILY, TAB 01/29/18 Atorvastatin Calcium* (LIPITOR*) 40 Mg Tablet, 40 MG ORAL BEDTIME, TAB 0 Refills 01/29/18 Med list reviewed/reconciled: Yes Allergies: Coded Allergies: No Known Allergies (Unverified , 01/29/18) Patient History History Provided By: Patient, Family Member, Medical Record PMH Narrative Past Medical History: see triage record Past Surgical History: none Pertinent Family History: none Reviewed Nursing Documentation: PMH: Agreed, PSxH: Agreed Nursing Documentation-PMH Hx Hypertension: Yes Hx Cerebrovascular Accident: Yes - LEFT SIDED DEFICIT Social History: Denies: smoking, alcohol use, drug use, other Review of Systems All Other Systems: negative except mentioned in HPI Physical Exam Vital Signs Date Time Temp Pulse Resp B/P (MAP) Pulse Ox O2 Delivery O2 Flow Rate FiO2 01/29/18 19:02 98.1 104 16 122/72 98 Room Air 98.1 Sp02 EP Interpretation: reviewed, normal Labs Laboratory Tests Test 01/29/18 20:40 01/29/18 21:48 01/30/18 10:30 White Blood Count 15.4 K/UL (4.8-10.8) H 13.0 K/UL (4.8-10.8) H Red Blood Count 4.01 M/UL (4.20-5.40) L 3.76 M/UL (4.20-5.40) L Hemoglobin 13.2 G/DL (12.0-16.0) 12.0 G/DL (12.0-16.0) Hematocrit 35.2 % (37.0-47.0) L 33.2 % (37.0-47.0) L Mean Corpuscular Volume 88 FL (80-99) 88 FL (80-99) Mean Corpuscular Hemoglobin 32.9 PG (27.0-31.0) H 31.9 PG (27.0-31.0) H Mean Corpuscular Hemoglobin Concent 37.5 G/DL (32.0-36.0) H 36.0 G/DL (32.0-36.0) Red Cell Distribution Width 11.2 % (11.6-14.8) L 11.4 % (11.6-14.8) L Platelet Count 317 K/UL (150-450) 289 K/UL (150-450) Mean Platelet Volume 7.9 FL (6.5-10.1) 7.7 FL (6.5-10.1) Neutrophils (%) (Auto) % (45.0-75.0) 82.8 % (45.0-75.0) H Lymphocytes (%) (Auto) % (20.0-45.0) 11.3 % (20.0-45.0) L Monocytes (%) (Auto) % (1.0-10.0) 5.1 % (1.0-10.0) Eosinophils (%) (Auto) % (0.0-3.0) 0.2 % (0.0-3.0) Basophils (%) (Auto) % (0.0-2.0) 0.6 % (0.0-2.0) Differential Total Cells Counted 100 Neutrophils % (Manual) 87 % (45-75) H Lymphocytes % (Manual) 9 % (20-45) L Monocytes % (Manual) 4 % (1-10) Eosinophils % (Manual) 0 % (0-3) Basophils % (Manual) 0 % (0-2) Band Neutrophils 0 % (0-8) Platelet Estimate Adequate Platelet Morphology Normal Red Blood Cell Morphology Normal Sodium Level 138 MMOL/L (136-145) 140 MMOL/L (136-145) Potassium Level 4.6 MMOL/L (3.5-5.1) 4.5 MMOL/L (3.5-5.1) Chloride Level 104 MMOL/L (98-107) 104 MMOL/L (98-107) Carbon Dioxide Level 24 MMOL/L (21-32) 26 MMOL/L (21-32) Anion Gap 10 mmol/L (5-15) 10 mmol/L (5-15) Blood Urea Nitrogen 19 mg/dL (7-18) H 17 mg/dL (7-18) Creatinine 0.8 MG/DL (0.55-1.30) 1.0 MG/DL (0.55-1.30) Estimat Glomerular Filtration Rate mL/min (>60) mL/min (>60) Glucose Level 153 MG/DL (74-106) H 151 MG/DL (74-106) H Calcium Level 9.5 MG/DL (8.5-10.1) 9.5 MG/DL (8.5-10.1) Total Bilirubin 0.6 MG/DL (0.2-1.0) 0.5 MG/DL (0.2-1.0) Aspartate Amino Transf (AST/SGOT) 55 U/L (15-37) H 28 U/L (15-37) Alanine Aminotransferase (ALT/SGPT) 84 U/L (12-78) H 66 U/L (12-78) Alkaline Phosphatase 79 U/L (46-116) 75 U/L (46-116) Troponin I 0.008 ng/mL (0.000-0.056) 0.019 ng/mL (0.000-0.056) Pro-B-Type Natriuretic Peptide 433 pg/mL (0-125) H Total Protein 7.3 G/DL (6.4-8.2) 7.0 G/DL (6.4-8.2) Albumin 3.0 G/DL (3.4-5.0) L 2.9 G/DL (3.4-5.0) L Globulin 4.3 g/dL 4.1 g/dL Albumin/Globulin Ratio 0.7 (1.0-2.7) L 0.7 (1.0-2.7) L Urine Color Yellow Urine Appearance Slightly cloudy Urine pH 5 (4.5-8.0) Urine Specific Mcgrew 1.015 (1.005-1.035) Urine Protein 1+ (NEGATIVE) H Urine Glucose (UA) Negative (NEGATIVE) Urine Ketones Negative (NEGATIVE) Urine Occult Blood 1+ (NEGATIVE) H Urine Nitrite Positive (NEGATIVE) H Urine Bilirubin Negative (NEGATIVE) Urine Urobilinogen Normal MG/DL (0.0-1.0) Urine Leukocyte Esterase 3+ (NEGATIVE) H Urine RBC 0-2 /HPF (0 - 2) Urine WBC 2-4 /HPF (0 - 2) Urine Squamous Epithelial Cells Few /LPF (NONE/OCC) Urine Amorphous Sediment Few /LPF (NONE) H Urine Bacteria Few /HPF (NONE) Prothrombin Time 10.7 SEC (9.30-11.50) Prothromb Time International Ratio 1.0 (0.9-1.1) Activated Partial Thromboplast Time 25 SEC (23-33) Triglycerides Level 74 MG/DL (30-150) Cholesterol Level 79 MG/DL (< 200) LDL Cholesterol 39 mg/dL (<100) HDL Cholesterol 31 MG/DL (40-60) L Cholesterol/HDL Ratio 2.5 (3.3-4.4) L Thyroid Stimulating Hormone (TSH) 1.109 uiU/mL (0.358-3.740) General Appearance: well appearing, no apparent distress, alert, thin Head: normocephalic EENT: PERRL/EOMI, normal ENT inspection Neck: supple Respiratory: normal breath sounds, no respiratory distress Cardiovascular: normal rate Gastrointestinal: normal inspection, non tender, soft, normal bowel sounds, non -distended Rectal: deferred Genitourinary: no CVA tenderness Musculoskeletal: normal inspection, back normal Neurologic: normal inspection, alert, oriented x3, responsive Psychiatric: normal inspection, judgement/insight normal, memory normal Skin: normal inspection, normal color, no rash, warm/dry, palpation normal, well hydrated Lymphatic: normal inspection, no adenopathy Current Medications Current Medications Medications (Trade) Dose Ordered Sig/Par[place]ise Route PRN Reason Start Time Stop Time Status Last Admin Dose Admin Acetaminophen (Tylenol) 650 mg Q4H PRN ORAL fever 01/29/18 21:30 02/28/18 21:29 Al Hydroxide/Mg Hydroxide (Mylanta II) 30 ml Q6H PRN ORAL dyspepsia 01/29/18 21:30 02/28/18 21:29 Albuterol/ Ipratropium (Albuterol/ Ipratropium) 3 ml EVERY 4 HOURS PRN HHN Shortness of Breath 01/29/18 21:30 02/03/18 21:29 Amlodipine Besylate (Norvasc) 10 mg DAILY ORAL 01/30/18 09:00 03/01/18 08:59 01/30/18 09:00 Atorvastatin Calcium (Lipitor) 40 mg BEDTIME ORAL 01/30/18 21:00 03/01/18 20:59 Clopidogrel Bisulfate (Plavix) 75 mg DAILY ORAL 01/30/18 09:00 03/01/18 08:59 01/30/18 09:00 Dextrose (Dextrose 50%) STAT PRN IV Hypoglycemia 01/29/18 21:30 02/28/18 21:29 Heparin Sodium (Porcine) (Heparin 5000 units/ml) 5,000 units EVERY 12 HOURS SUBQ 01/30/18 09:00 03/01/18 08:59 01/30/18 09:00 Lisinopril (Zestril) 5 mg DAILY ORAL 01/30/18 09:00 03/01/18 08:59 01/30/18 09:00 Lorazepam (Ativan 2mg/ml 1ml) 0.5 mg Q4H PRN IV For Anxiety 01/29/18 21:30 02/05/18 21:29 Metoprolol Tartrate (Lopressor) 100 mg EVERY 12 HOURS ORAL 01/30/18 09:00 03/01/18 08:59 01/30/18 09:00 Morphine Sulfate (Morphine Sulfate) 1 mg EVERY 4 HOURS PRN IVP For Pain 7-10 01/29/18 21:30 02/05/18 21:29 Nitroglycerin (Ntg) 0.4 mg Q5M X 3 DOSES PRN SL Prn Chest Pain 01/29/18 21:30 02/28/18 21:29 Ondansetron HCl (Zofran) 4 mg Q6H PRN IVP Nausea & Vomiting 01/29/18 21:30 02/28/18 21:29 Polyethylene Glycol (Miralax) 17 gm HSPRN PRN ORAL Constipation 01/29/18 21:30 02/28/18 21:29 Temazepam (Restoril) 15 mg HSPRN PRN ORAL Insomnia 01/29/18 21:30 02/05/18 21:29 GI: Plan Problems: (1) Syncope (2) Vomiting (3) Epigastric pain Plan symptomatic treatment at this time zofran prn, compazine as alternative adv diet as tolerated ppi abx electrolyte correction fu labs outpatient GI procedures Discussed with Dr. Gore. Thank you for this patient referral, we will follow. DUONG GORE 02/06/18 1334: History of Present Illness General Reason for Hospitalization: Syncope Present Illness Home Meds Reported Medications Metoprolol Tartrate* (METOPROLOL TARTRATE*) 100 Mg Tablet, 100 MG ORAL EVERY 12 HOURS, TAB 01/29/18 Lisinopril (LISINOPRIL*) 5 Mg Tablet, 5 MG ORAL DAILY, TAB 01/29/18 Clopidogrel* (CLOPIDOGREL*) 75 Mg Tablet, 75 MG ORAL DAILY, TAB 01/29/18 Aspirin* (ASPIRIN*) 81 Mg Tab.chew, 81 MG ORAL DAILY, TAB 01/29/18 Amlodipine Besylate* (AMLODIPINE BESYLATE*) 10 Mg Tablet, 10 MG ORAL DAILY, TAB 01/29/18 Atorvastatin Calcium* (LIPITOR*) 40 Mg Tablet, 40 MG ORAL BEDTIME, TAB 0 Refills 01/29/18 Allergies: Coded Allergies: No Known Allergies (Unverified , 01/29/18) GI: Plan Plan The patient was seen and examined at bedside and all new and available data was reviewed in the patients chart. I agree with the above findings, impression and plan. (Patient seen earlier today. Signature stamp does not reflect patient encounter time.). - MD Dafne Lorenzo Anh Jossue Wall Jan 30, 2018 17:17 DUONG GORE Feb 06, 2018 13:34
--- NOTE | 2018-01-30 18:00 | Consultation ---
DATE OF CONSULTATION: 01/30/2018 CARDIOLOGY CONSULTATION CONSULTING PHYSICIAN: Storm Fernandez M.D. REFERRING PHYSICIAN: Alexander Lima M.D. REASON FOR REFERRAL: Syncope. HISTORY OF PRESENT ILLNESS: This is an elderly female who has had a stroke and is really not able to verbally communicate. Information was obtained from my discussion with the patient's daughter at the bedside. She has had a stroke, hemiparalyzed on the left side. She has had evaluations at [facility]. She had a recent MRI and a Neurology evaluation. She was told that one of her arteries in her is blocked. She is supposed to follow up with them soon. In either case, the patient had some bouts of nausea and vomiting yesterday. During one of these episodes of vomiting, she passed out. They laid her on the floor. Eventually after two minutes of what they called "CPR", the patient woke up and was brought to the emergency room by the paramedics. The automation test developer run sheet was reviewed and indicate that they found her with a heart rate of 109 with a blood pressure of 104/67. They found her on the floor. She had vomited and was unresponsive for approximately 30 seconds, although her daughter today thinks it was approximately two minutes. She denied at that time any chest pain or shortness of breath and again on questioning the patient's daughter translating, she does not have any chest pain. There is no shortness of breath. There is no dizziness or lightheadedness. No heart pounding or palpitations. PAST MEDICAL HISTORY: Positive for history of high blood pressure. Her daughter is not sure about high cholesterol. No history of heart attack. No history of cancer. She has a history of stroke as mentioned with left-sided paralysis. No hepatitis or tuberculosis. No asthma or emphysema. No ulcers. No kidney problems, liver problems, thyroid problems, anemia, arthritis, blood clots, or gynecological problems. ALLERGIES: No allergies to medications. SOCIAL HISTORY: Never smoked and never drank. 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 REVIEW OF SYSTEMS: GASTROINTESTINAL: Bouts of nausea and vomiting yesterday, otherwise negative. She did have one time some bloody stool after she finished her bowel movement. She was constipated. She had some bloody stools at the end of the bowel movement. GENITOURINARY: She has recent urinary tract infection for which she treated with antibiotics two weeks ago. PULMONARY: Negative. CONSTITUTIONAL: Negative. NEUROLOGIC: She has left-sided paralysis, otherwise the patient is in a wheelchair. PHYSICAL EXAMINATION: GENERAL: Shows to be elderly female, in no respiratory distress. VITAL SIGNS: Blood pressure anywhere between 111/65 to 122/47 and saturating 98% on room air and at present time with heart rate of 102. NECK: Supple. There is a carotid extension of cardiac murmur. LUNGS: Clear to auscultation and percussion. CARDIAC: Diastolic ejection murmur is noted and a systolic ejection murmur. There is no RV lift, heaves, thrills or gallops noted. ABDOMEN: Soft and nontender. Positive bowel sounds. EXTREMITIES: There is no clubbing, cyanosis, nor is there any edema. NEUROLOGICAL: She is weak on the left side. LABORATORY AND DIAGNOSTIC DATA: Telemetry data shows actually a sinus rhythm, sinus tachycardia. Electrocardiogram shows normal sinus rhythm, normal QRS axis, and some delay in R-wave progression and her other blood tests show initial white count of 15.4 down to 13 with hemoglobin 12 and platelet count of 289. Her laboratories are pending at this time. Her first set of cardiac enzymes were negative. Her proBNP was 433. Sodium 138, potassium 4.6, chloride 104, bicarbonate 24, BUN 19, creatinine 0.8, and glucose of 153. Her coagulation, INR was pending at this time. Urinalysis looks rather unremarkable, although 2 to 4 WBCs. Chest x-ray was performed in the emergency room shows no acute processes. ASSESSMENT AND PLAN: 1. Syncope, likely vasovagal vomiting-induced. 2. Nausea and vomiting, resolved. 3. History of CVA. 4. History of carotid occlusion and stenosis. 5. Recent urinary tract infection. 6. Elevated blood sugar. Dr. Lima, this patient was seen in cardiac consultation. The patient's signs and symptoms, I have described to the patient's daughter, is highly suggestive of vasovagal response to vomiting. She does have a history of heart murmur. An echocardiogram has been performed. We will await review of the echocardiogram, but I suspect unless that echocardiogram showed significant abnormalities with respect to wall motion or significant stenosis that she would like to be able to be discharged home later today. Storm Fernandez M.D. DR: NOAM JOB#: [id number] CC:
[2018-01-30 20:00] VITALS: BP 119/64
[2018-01-30] MEDS ORDERED: Atorvastatin 80mg tab ORAL SCH (21:00)
--- NOTE | 2018-01-30 21:45 | Consultation ---
DATE OF CONSULTATION: 01/30/2018 NEUROLOGICAL CONSULTATION CONSULTING PHYSICIAN: Lex Pacheco M.D. REQUESTING PHYSICIAN: Alexander Lima M.D. HISTORY OF PRESENT ILLNESS: This is an 82-year-old female, seen in neurological consultation to evaluate the transient unresponsiveness following a recent stroke. According to the patient's daughter who was present during this examination on 12/06/2017, the patient had a massive stroke with left hemiplegia. She has preexistent mild dementia. Yesterday, she was sitting at a table, having yoghourt when she suddenly vomited, became pale, profound weakness, unable to lift her arm, was not breathing properly. Family called 911, advised to put the patient down to the ground and to do CPR, which was done and the patient felt some improvement. She was brought to emergency room. Blood pressure 122/72 and temperature 98.1 degrees. She was awake and oriented x2, able to spontaneously moving right side of the body. Her initial workup included chest x-ray, revealed no acute disease. Lab work included CBC study with WBC 15.4, elevated MCV and MCH. Normal coagulation panel. Urinalysis, 3+ leukocyte esterase, 1+ protein. Chemistry panel with BUN of 19, blood sugar 153, elevated AST 55, ALT 84 and BNP of 433. Normal TSH. Unremarkable lipid panel. Since admission till present, the patient remained stable. No paroxysmal events noted. PAST MEDICAL HISTORY: The patient has a history of hypertension with treatment currently including lisinopril, metoprolol, Plavix, atorvastatin, aspirin, and amlodipine. ALLERGIES: None reported. SOCIAL HISTORY: Lives with her family. No alcohol. No drug abuse. Nonsmoker. FAMILY HISTORY: Noncontributory. REVIEW OF SYMPTOMS: The patient indicated that she is feeling okay, but has some memory issues. PHYSICAL EXAMINATION: GENERAL: A well-developed, somewhat cachectic, elderly female, now being fed by her daughter. VITAL SIGNS: Now stable, blood pressure 127/76, heart rate is 120. HEENT: Head, normocephalic. No evidence of trauma. Eyes, ears, and throat are clear. NECK: Supple. No meningeal signs. MUSCULOSKELETAL: Unremarkable. No deformities. Peripheral pulses 1+ symmetric. MENTAL STATUS: The patient is alert and oriented x2. Speech is fluent in [place] only, able to follow simple commands, responding brief . CRANIAL NERVE II: Pupils both responding to light and accommodation. Extraocular movements full range. Fundi poorly visualized. There is probable left hemianopia. CRANIAL NERVE V: Normal corneal responses. CRANIAL NERVE VII: Drooped left nasolabial fold. CRANIAL NERVE VIII: Normal hearing. CRANIAL NERVES IX THROUGH XII: Within normal limits. MOTOR EXAMINATION: Flaccid left upper and left lower extremity. No spontaneous movement. Normal strength in right extremities. Deep tendon reflexes depressed on the left and 1+ on the right. Plantar responses on the left. SENSORY EXAMINATION: Decreased response to pin stimulation on the left side of the body. IMPRESSION: 1. Syncopal episode, probably vasovagal, rule out a cardiogenic arrhythmia. 2. 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 3. Vascular dementia. 4. Hypertension. 5. Hyperlipidemia. RECOMMENDATIONS: Check orthostatic blood pressure. Cardiac monitoring. A 2D echocardiogram. Continue with the current treatment including Ecotrin, Plavix, and statins. Encourage p.o. hydration. Thank you for allowing me to see this interesting patient in neurological consultation. Lex Pacheco M.D. DR: RAISSA JOB#: [id number] CC:
[2018-01-30 23:29] VITALS: BP 125/54
[2018-01-31 04:05] VITALS: BP 137/64
[2018-01-31 08:00] VITALS: BP 130/72
[2018-01-31 08:37] LABS: EOSINOPHILS % (AUTO) 1.1 % (0.0-3.0); HEMATOCRIT 32.9 % (37.0-47.0); HEMOGLOBIN 12.4 G/DL (12.0-16.0); LYMPHOCYTES % (AUTO) 25.7 % (20.0-45.0); MEAN CORPUSCULAR VOLUME 87 FL (80-99); MONOCYTES % (AUTO) 5.2 % (1.0-10.0); PLATELET COUNT 275 K/UL (150-450); RED BLOOD COUNT 3.78 M/UL (4.20-5.40)
[2018-01-31 08:56] LABS: ANION GAP 9 mmol/L (5-15); BLOOD UREA NITROGEN 13 mg/dL (7-18); CALCIUM 9.7 MG/DL (8.5-10.1); CARBON DIOXIDE 26 MMOL/L (21-32); CHLORIDE 103 MMOL/L (98-107); CREATININE 0.8 MG/DL (0.55-1.30); PHOSPHORUS 3.5 MG/DL (2.5-4.9); POTASSIUM 3.9 MMOL/L (3.5-5.1); SODIUM 138 MMOL/L (136-145)
--- NOTE | 2018-01-31 09:31 | Pulmonology Progress Note ---
Assessment/Plan Problems: (1) Syncope (2) Vomiting (3) Epigastric pain (4) Hypertension (5) History of CVA (cerebrovascular accident) (6) Protein-calorie malnutrition, severe Assessment/Plan no new complains doing better daughter usually feeds the pt. symptomatic treatment echo reviewed. swallow study Subjective ROS Limited/Unobtainable: Yes Interval Events: looks comfortable Allergies: Coded Allergies: No Known Allergies (Unverified , 01/29/18) Objective Last 24 Hour Vital Signs Date Time Temp Pulse Resp B/P (MAP) Pulse Ox O2 Delivery O2 Flow Rate FiO2 01/31/18 08:00 97.5 82 18 130/72 100 Room Air 97.5 01/31/18 04:05 97.9 79 16 137/64 98 Room Air 97.9 01/31/18 04:02 81 01/31/18 00:01 67 01/30/18 23:29 97.5 77 16 125/54 97 97.5 01/30/18 21:18 79 119/64 01/30/18 20:16 79 01/30/18 20:00 97.5 79 16 119/64 95 97.5 01/30/18 16:00 72 01/30/18 12:00 69 Intake and Output 01/30/18 01/31/18 19:00 07:00 Intake Total 348 ml Output Total 520 ml Balance 348 ml -520 ml Intake Oral 348 ml Output Urine Total 520 ml Objective General Appearance: cachectic, somnolent Lines, tubes and drains: peripheral HEENT: normocephalic, atraumatic Neck: non-tender, normal alignment Respiratory/Chest: chest wall non-tender, lungs clear Breasts: no masses Cardiovascular/Chest: normal peripheral pulses, normal rate Abdomen: normal bowel sounds, non tender Genitourinary/Rectal: normal genital exam, heme negative stool Extremities: normal range of motion, non-tender Skin Exam: normal pigmentation Laboratory Tests 01/30/18 10:30: White Blood Count 13.0H, Red Blood Count 3.76L, Hemoglobin 12.0, Hematocrit 33.2L, Mean Corpuscular Volume 88, Mean Corpuscular Hemoglobin 31.9H, Mean Corpuscular Hemoglobin Concent 36.0, Red Cell Distribution Width 11.4L, Platelet Count 289, Mean Platelet Volume 7.7, Neutrophils (%) (Auto) 82.8H, Lymphocytes (%) (Auto) 11.3L, Monocytes (%) (Auto) 5.1, Eosinophils (%) (Auto) 0.2, Basophils (%) (Auto) 0.6, Prothrombin Time 10.7, Prothromb Time International Ratio 1.0, Activated Partial Thromboplast Time 25, Sodium Level 140, Potassium Level 4.5, Chloride Level 104, Carbon Dioxide Level 26, Anion Gap 10, Blood Urea Nitrogen 17, Creatinine 1.0, Estimat Glomerular Filtration Rate , Glucose Level 151H, Calcium Level 9.5, Total Bilirubin 0.5, Aspartate Amino Transf (AST/SGOT) 28, Alanine Aminotransferase (ALT/SGPT) 66, Alkaline Phosphatase 75, Troponin I 0.019, Total Protein 7.0, Albumin 2.9L, Globulin 4.1 , Albumin/Globulin Ratio 0.7L, Triglycerides Level 74, Cholesterol Level 79, LDL Cholesterol 39, HDL Cholesterol 31L, Cholesterol/HDL Ratio 2.5L, Thyroid Stimulating Hormone (TSH) 1.109 01/31/18 06:43: White Blood Count 9.0, Red Blood Count 3.78L, Hemoglobin 12.4, Hematocrit 32.9L , Mean Corpuscular Volume 87, Mean Corpuscular Hemoglobin 32.8H, Mean Corpuscular Hemoglobin Concent 37.7H, Red Cell Distribution Width 11.0L, Platelet Count 275, Mean Platelet Volume 7.1, Neutrophils (%) (Auto) 67.0, Lymphocytes (%) (Auto) 25.7, Monocytes (%) (Auto) 5.2, Eosinophils (%) (Auto) 1.1, Basophils (%) (Auto) 1.0, Sodium Level 138, Potassium Level 3.9, Chloride Level 103, Carbon Dioxide Level 26, Anion Gap 9, Blood Urea Nitrogen 13, Creatinine 0.8, Estimat Glomerular Filtration Rate , Glucose Level 118H, Calcium Level 9.7, Phosphorus Level 3.5, Magnesium Level 1.5L Current Medications Medications (Trade) Dose Ordered Sig/Paradise Route PRN Reason Start Time Stop Time Status Last Admin Dose Admin Acetaminophen (Tylenol) 650 mg Q4H PRN ORAL fever 01/29/18 21:30 02/28/18 21:29 Al Hydroxide/Mg Hydroxide (Mylanta II) 30 ml Q6H PRN ORAL dyspepsia 01/29/18 21:30 02/28/18 21:29 Albuterol/ Ipratropium (Albuterol/ Ipratropium) 3 ml EVERY 4 HOURS PRN HHN Shortness of Breath 01/29/18 21:30 02/03/18 21:29 Amlodipine Besylate (Norvasc) 10 mg DAILY ORAL 01/30/18 09:00 03/01/18 08:59 01/30/18 09:00 Atorvastatin Calcium (Lipitor) 40 mg BEDTIME ORAL 01/30/18 21:00 03/01/18 20:59 01/30/18 21:18 Clopidogrel Bisulfate (Plavix) 75 mg DAILY ORAL 01/30/18 09:00 03/01/18 08:59 01/30/18 09:00 Dextrose (Dextrose 50%) STAT PRN IV Hypoglycemia 01/29/18 21:30 02/28/18 21:29 Heparin Sodium (Porcine) (Heparin 5000 units/ml) 5,000 units EVERY 12 HOURS SUBQ 01/30/18 09:00 03/01/18 08:59 01/30/18 21:19 Lisinopril (Zestril) 5 mg DAILY ORAL 01/30/18 09:00 03/01/18 08:59 01/30/18 09:00 Lorazepam (Ativan 2mg/ml 1ml) 0.5 mg Q4H PRN IV For Anxiety 01/29/18 21:30 02/05/18 21:29 Metoprolol Tartrate (Lopressor) 100 mg EVERY 12 HOURS ORAL 01/30/18 09:00 03/01/18 08:59 01/30/18 21:18 Morphine Sulfate (Morphine Sulfate) 1 mg EVERY 4 HOURS PRN IVP For Pain 7-10 01/29/18 21:30 02/05/18 21:29 Nitroglycerin (Ntg) 0.4 mg Q5M X 3 DOSES PRN SL Prn Chest Pain 01/29/18 21:30 02/28/18 21:29 Ondansetron HCl (Zofran) 4 mg Q6H PRN IVP Nausea & Vomiting 01/29/18 21:30 02/28/18 21:29 Polyethylene Glycol (Miralax) 17 gm HSPRN PRN ORAL Constipation 01/29/18 21:30 02/28/18 21:29 Temazepam (Restoril) 15 mg HSPRN PRN ORAL Insomnia 01/29/18 21:30 02/05/18 21:29 TOBIAS CERRATO Jan 31, 2018 09:31
--- NOTE | 2018-01-31 10:35 | GI Progress Note ---
Assessment/Plan Problems: (1) Epigastric pain ICD Codes: R10.13 - Epigastric pain SNOMED: 18349596 (2) Syncope ICD Codes: R55 - Syncope and collapse SNOMED: 832432764 (3) Vomiting ICD Codes: R11.10 - Vomiting, unspecified SNOMED: 423998565 (4) Protein-calorie malnutrition, severe ICD Codes: E43 - Unspecified severe protein-calorie malnutrition SNOMED: 306758897 Status: doing well, stable Status Narrative Discussed with Dr. Peres. Assessment/Plan symptomatic treatment at this time BP mgmt zofran prn, compazine as alternative PT today adv diet as tolerated ppi abx electrolyte correction fu labs outpatient GI procedures Subjective Gastrointestinal/Abdominal: Reports: no symptoms Subjective feels better Objective Last 24 Hour Vital Signs Date Time Temp Pulse Resp B/P (MAP) Pulse Ox O2 Delivery O2 Flow Rate FiO2 01/31/18 08:00 97.5 82 18 130/72 100 Room Air 97.5 01/31/18 04:05 97.9 79 16 137/64 98 Room Air 97.9 01/31/18 04:02 81 01/31/18 00:01 67 01/30/18 23:29 97.5 77 16 125/54 97 97.5 01/30/18 21:18 79 119/64 01/30/18 20:16 79 01/30/18 20:00 97.5 79 16 119/64 95 97.5 01/30/18 16:00 72 01/30/18 12:00 69 Intake and Output 01/30/18 01/31/18 19:00 07:00 Intake Total 348 ml Output Total 520 ml Balance 348 ml -520 ml Intake Oral 348 ml Output Urine Total 520 ml Laboratory Tests Test 01/31/18 06:43 White Blood Count 9.0 K/UL (4.8-10.8) Red Blood Count 3.78 M/UL (4.20-5.40) L Hemoglobin 12.4 G/DL (12.0-16.0) Hematocrit 32.9 % (37.0-47.0) L Mean Corpuscular Volume 87 FL (80-99) Mean Corpuscular Hemoglobin 32.8 PG (27.0-31.0) H Mean Corpuscular Hemoglobin Concent 37.7 G/DL (32.0-36.0) H Red Cell Distribution Width 11.0 % (11.6-14.8) L Platelet Count 275 K/UL (150-450) Mean Platelet Volume 7.1 FL (6.5-10.1) Neutrophils (%) (Auto) 67.0 % (45.0-75.0) Lymphocytes (%) (Auto) 25.7 % (20.0-45.0) Monocytes (%) (Auto) 5.2 % (1.0-10.0) Eosinophils (%) (Auto) 1.1 % (0.0-3.0) Basophils (%) (Auto) 1.0 % (0.0-2.0) Sodium Level 138 MMOL/L (136-145) Potassium Level 3.9 MMOL/L (3.5-5.1) Chloride Level 103 MMOL/L (98-107) Carbon Dioxide Level 26 MMOL/L (21-32) Anion Gap 9 mmol/L (5-15) Blood Urea Nitrogen 13 mg/dL (7-18) Creatinine 0.8 MG/DL (0.55-1.30) Estimat Glomerular Filtration Rate mL/min (>60) Glucose Level 118 MG/DL (74-106) H Calcium Level 9.7 MG/DL (8.5-10.1) Phosphorus Level 3.5 MG/DL (2.5-4.9) Magnesium Level 1.5 MG/DL (1.8-2.4) L Height (Feet): 5 Height (Inches): 2.00 Weight (Pounds): 120 General Appearance: WD/WN, no apparent distress, alert Cardiovascular: normal rate Respiratory/Chest: normal breath sounds, no respiratory distress Abdominal Exam: normal bowel sounds, non tender, soft Extremities: normal range of motion, non-tender Yoon Leos N.P. Jan 31, 2018 10:35
--- NOTE | 2018-01-31 10:36 | GI Progress Note ---
Assessment/Plan Problems: (1) Epigastric pain ICD Codes: R10.13 - Epigastric pain SNOMED: 94136740 (2) Syncope ICD Codes: R55 - Syncope and collapse SNOMED: 598215505 (3) Vomiting ICD Codes: R11.10 - Vomiting, unspecified SNOMED: 302935895 (4) Protein-calorie malnutrition, severe ICD Codes: E43 - Unspecified severe protein-calorie malnutrition SNOMED: 556308402 Status: doing well, progressing Status Narrative Discussed with Dr. Peres. Assessment/Plan symptomatic treatment at this time BP mgmt zofran prn, compazine as alternative PT today adv diet as tolerated ppi abx electrolyte correction fu KUB fu labs outpatient GI procedures The patient was seen and examined at bedside and all new and available data was reviewed in the patients chart. I agree with the above findings, impression and plan. (Patient seen earlier today. Signature stamp does not reflect patient encounter time.). - Cruz Peres MD Subjective Subjective feels better Objective Last 24 Hour Vital Signs Date Time Temp Pulse Resp B/P (MAP) Pulse Ox O2 Delivery O2 Flow Rate FiO2 01/31/18 08:00 97.5 82 18 130/72 100 Room Air 97.5 01/31/18 04:05 97.9 79 16 137/64 98 Room Air 97.9 01/31/18 04:02 81 01/31/18 00:01 67 01/30/18 23:29 97.5 77 16 125/54 97 97.5 01/30/18 21:18 79 119/64 01/30/18 20:16 79 01/30/18 20:00 97.5 79 16 119/64 95 97.5 01/30/18 16:00 72 01/30/18 12:00 69 Intake and Output 01/30/18 01/31/18 19:00 07:00 Intake Total 348 ml Output Total 520 ml Balance 348 ml -520 ml Intake Oral 348 ml Output Urine Total 520 ml Laboratory Tests Test 01/31/18 06:43 White Blood Count 9.0 K/UL (4.8-10.8) Red Blood Count 3.78 M/UL (4.20-5.40) L Hemoglobin 12.4 G/DL (12.0-16.0) Hematocrit 32.9 % (37.0-47.0) L Mean Corpuscular Volume 87 FL (80-99) Mean Corpuscular Hemoglobin 32.8 PG (27.0-31.0) H Mean Corpuscular Hemoglobin Concent 37.7 G/DL (32.0-36.0) H Red Cell Distribution Width 11.0 % (11.6-14.8) L Platelet Count 275 K/UL (150-450) Mean Platelet Volume 7.1 FL (6.5-10.1) Neutrophils (%) (Auto) 67.0 % (45.0-75.0) Lymphocytes (%) (Auto) 25.7 % (20.0-45.0) Monocytes (%) (Auto) 5.2 % (1.0-10.0) Eosinophils (%) (Auto) 1.1 % (0.0-3.0) Basophils (%) (Auto) 1.0 % (0.0-2.0) Sodium Level 138 MMOL/L (136-145) Potassium Level 3.9 MMOL/L (3.5-5.1) Chloride Level 103 MMOL/L (98-107) Carbon Dioxide Level 26 MMOL/L (21-32) Anion Gap 9 mmol/L (5-15) Blood Urea Nitrogen 13 mg/dL (7-18) Creatinine 0.8 MG/DL (0.55-1.30) Estimat Glomerular Filtration Rate mL/min (>60) Glucose Level 118 MG/DL (74-106) H Calcium Level 9.7 MG/DL (8.5-10.1) Phosphorus Level 3.5 MG/DL (2.5-4.9) Magnesium Level 1.5 MG/DL (1.8-2.4) L Height (Feet): 5 Height (Inches): 2.00 Weight (Pounds): 120 General Appearance: WD/WN, no apparent distress, alert, thin Cardiovascular: normal rate Respiratory/Chest: normal breath sounds, no respiratory distress Abdominal Exam: normal bowel sounds, non tender, soft Extremities: normal range of motion, non-tender Yoon Leos N.PChencho Jan 31, 2018 10:36 DUONG PERES Feb 06, 2018 13:34
[2018-01-31] MEDS: Lisinopril 2.5mg tab ORAL SCH (10:46)
[2018-01-31] MEDS: Heparin 5000 units/ml inj SUBQ SCH ×2 (10:49→21:19)
--- NOTE | 2018-01-31 11:03 | Diagnostic Imaging Report ---
Indication: Abdominal pain Comparison: None Single view of the abdomen obtained Findings: Bowel gas pattern is nonspecific. No mass, ectopic calcifications, or abnormal gas collections are identified. The bones are osteopenic. Degenerative changes of the lumbosacral junction demonstrated.. Impression: No acute findings
[2018-01-31] MEDS ORDERED: Nitroglycerin Subl 0.4mg tab SL PRN (12:30)
[2018-01-31] MEDS ORDERED: Albuterol/Ipratropium 3ml neb HHN PRN (13:00)
[2018-01-31] MEDS ORDERED: Mylanta II UD 30ml ORAL PRN (13:00)
[2018-01-31] MEDS ORDERED: Morphine Sulfate 2mg/ml Inj IVP PRN (13:00)
[2018-01-31] MEDS ORDERED: LORazepam Inj 2mg/ml 1ml IV PRN (13:30)
[2018-01-31 16:00] VITALS: BP 122/43
--- NOTE | 2018-01-31 19:22 | Consultation ---
Consult Note Consult Note ID DIC # [id number] TAYLA KILGORE M.D. Jan 31, 2018 19:22
[2018-01-31 20:00] VITALS: BP 129/62
[2018-01-31] MEDS ORDERED: Atorvastatin 20mg tab ORAL SCH (21:00)
[2018-01-31] MEDS ORDERED: Miralax 17gm pkt ORAL PRN (21:30)
[2018-02-01] VITALS: BP 128/54
[2018-02-01 04:00] VITALS: BP 127/64
--- NOTE | 2018-02-01 04:30 | Consultation ---
DATE OF CONSULTATION: 01/31/2018 INFECTIOUS DISEASE CONSULTATION CONSULTING PHYSICIAN: Shelton Rhodes M.D. REFERRING PHYSICIAN: Alexander Lima M.D. REASON FOR CONSULTATION: Evaluation of the patient for possible sepsis, leukocytosis, and antibiotic management. HISTORY OF PRESENT ILLNESS: The patient is an 82-year-old female with multiple medical problems, who was admitted to this medical center with nausea and vomiting x1 episode. At the time of admission, the patient was found to have leukocytosis. An Infectious Disease consultation has been requested for further evaluation of the patient and possible need for antibiotic management. Much of the information is gathered through the interview of the patient's son. PAST MEDICAL HISTORY: 1. Hypertension. 2. CVA with left-sided weakness. MEDICATIONS: Off of antibiotics. ALLERGIES: No known drug allergies. SOCIAL HISTORY: The patient lives at home with her son. PHYSICAL EXAMINATION: VITAL SIGNS: Temperature 98.6, blood pressure 122/42, pulse 86, and respiratory rate 18. HEENT: No pale conjunctivae. No icterus. NECK: No lymphadenopathy. CHEST: Clear. HEART: S1 and S2. ABDOMEN: Soft and nontender. EXTREMITIES: No cyanosis. NEUROLOGIC: Awake. LABORATORY AND DIAGNOSTIC DATA: White blood cell count at the time of admission 15 and today is 9, hemoglobin 12, and platelets 275,000. UA unremarkable. BUN 13 and creatinine 0.8. Liver function tests improved from 55 to 28. AST and ALT improved from 84 to 55 and alkaline phosphatase 75. Ultrasound of the abdomen, no acute disease. Chest x-ray, [facility]. ASSESSMENT: The patient is an 82-year-old female with, 1. Sepsis. 2. Nausea and vomiting. 3. Leukocytosis, improved (most likely due to acute stress). 4. Transaminitis, improved, rule out biliary disease nausea, vomiting, and transient transaminitis. PLAN: 1. We will monitor the patient off of antibiotics. 2. Monitor CBC. 3. Monitor BMP. 4. Ultrasound of the abdomen for evaluation of gallbladder. 5. Based on the patient's clinical course and laboratories, we will do further recommendations. Thank you, Dr. Lima, for allowing me to participate in the care of this patient. I will follow the patient with you during this hospitalization. Shelton Rhodes M.D. DR: HORACE JOB#: [id number] CC:
[2018-02-01 07:55] LABS: BASOPHILS % (AUTO) 0.9 % (0.0-2.0); EOSINOPHILS % (AUTO) 0.8 % (0.0-3.0); HEMOGLOBIN 12.6 G/DL (12.0-16.0); LYMPHOCYTES % (AUTO) 22.2 % (20.0-45.0); MEAN CORPUSCULAR VOLUME 86 FL (80-99); MONOCYTES % (AUTO) 5.1 % (1.0-10.0); PLATELET COUNT 295 K/UL (150-450); RED BLOOD COUNT 3.84 M/UL (4.20-5.40); RED CELL DISTRIBUTION WIDTH 11.1 % (11.6-14.8); WHITE BLOOD COUNT 8.9 K/UL (4.8-10.8)
[2018-02-01 08:00] VITALS: BP 125/70
[2018-02-01 08:48] LABS: ANION GAP 7 mmol/L (5-15); BLOOD UREA NITROGEN 9 mg/dL (7-18); CALCIUM 9.8 MG/DL (8.5-10.1); CARBON DIOXIDE 26 MMOL/L (21-32); CHLORIDE 102 MMOL/L (98-107); CREATININE 0.8 MG/DL (0.55-1.30); POTASSIUM 3.8 MMOL/L (3.5-5.1); SODIUM 135 MMOL/L (136-145)
[2018-02-01] MEDS ORDERED: Lisinopril 2.5mg tab ORAL SCH (09:00)
[2018-02-01] MEDS: Heparin 5000 units/ml inj SUBQ SCH (09:13)
[2018-02-01 09:17] LABS: HEMATOCRIT 34.6 % (37.0-47.0)
[2018-02-01 12:00] VITALS: BP 123/58
--- NOTE | 2018-02-01 12:11 | GI Progress Note ---
Assessment/Plan Problems: (1) Epigastric pain ICD Codes: R10.13 - Epigastric pain SNOMED: 27421518 (2) Syncope ICD Codes: R55 - Syncope and collapse SNOMED: 759831660 (3) Vomiting ICD Codes: R11.10 - Vomiting, unspecified SNOMED: 069892936 (4) Protein-calorie malnutrition, severe ICD Codes: E43 - Unspecified severe protein-calorie malnutrition SNOMED: 135730304 Status: stable Status Narrative Discussed with Dr. Peres. Assessment/Plan KUB negative okay for DC per GI standpoint symptomatic treatment at this time BP mgmt zofran prn, compazine as alternative PT today adv diet as tolerated ppi abx electrolyte correction fu labs outpatient GI procedures The patient was seen and examined at bedside and all new and available data was reviewed in the patients chart. I agree with the above findings, impression and plan. (Patient seen earlier today. Signature stamp does not reflect patient encounter time.). - Cruz Peres MD Subjective Subjective feels better Objective Last 24 Hour Vital Signs Date Time Temp Pulse Resp B/P (MAP) Pulse Ox O2 Delivery O2 Flow Rate FiO2 02/01/18 09:11 60 125/70 02/01/18 09:10 125/70 02/01/18 09:00 60 125/70 02/01/18 08:13 77 18 Room Air 21 02/01/18 08:00 98.0 60 18 125/70 98 Room Air 98.0 02/01/18 04:00 98.3 74 20 127/64 98 Room Air 98.3 02/01/18 04:00 98 Room Air 02/01/18 00:00 98.0 69 20 128/54 97 98.0 02/01/18 00:00 97 Room Air 01/31/18 21:18 73 129/62 01/31/18 20:00 96 Room Air 01/31/18 20:00 99.5 73 20 129/62 96 99.5 01/31/18 16:00 98.6 67 18 122/43 100 Room Air 98.6 Intake and Output 01/31/18 02/01/18 19:00 07:00 Output Total 300 ml Balance -300 ml Output Urine Total 300 ml # Voids 2 1 Laboratory Tests Test 02/01/18 07:10 White Blood Count 8.9 K/UL (4.8-10.8) Red Blood Count 3.84 M/UL (4.20-5.40) L Hemoglobin 12.6 G/DL (12.0-16.0) Hematocrit 34.6 % (37.0-47.0) L Mean Corpuscular Volume 86 FL (80-99) Mean Corpuscular Hemoglobin 31.4 PG (27.0-31.0) H Mean Corpuscular Hemoglobin Concent 36.3 G/DL (32.0-36.0) H Red Cell Distribution Width 11.1 % (11.6-14.8) L Platelet Count 295 K/UL (150-450) Mean Platelet Volume 7.4 FL (6.5-10.1) Neutrophils (%) (Auto) 71.0 % (45.0-75.0) Lymphocytes (%) (Auto) 22.2 % (20.0-45.0) Monocytes (%) (Auto) 5.1 % (1.0-10.0) Eosinophils (%) (Auto) 0.8 % (0.0-3.0) Basophils (%) (Auto) 0.9 % (0.0-2.0) Sodium Level 135 MMOL/L (136-145) L Potassium Level 3.8 MMOL/L (3.5-5.1) Chloride Level 102 MMOL/L (98-107) Carbon Dioxide Level 26 MMOL/L (21-32) Anion Gap 7 mmol/L (5-15) Blood Urea Nitrogen 9 mg/dL (7-18) Creatinine 0.8 MG/DL (0.55-1.30) Estimat Glomerular Filtration Rate mL/min (>60) Glucose Level 120 MG/DL (74-106) H Calcium Level 9.8 MG/DL (8.5-10.1) Height (Feet): 5 Height (Inches): 2.00 Weight (Pounds): 120 General Appearance: WD/WN, no apparent distress, alert Cardiovascular: normal rate Respiratory/Chest: normal breath sounds, no respiratory distress Abdominal Exam: normal bowel sounds, non tender, soft Extremities: normal range of motion, non-tender Yoon Leos N.Donovan Feb 01, 2018 12:10 DUONG PERES Feb 07, 2018 11:34
[2018-02-01 16:00] VITALS: BP 101/51
--- NOTE | 2018-02-01 16:09 | Physician Query ---
--------- THIS DOCUMENT IS A PERMANENT PART OF THE MEDICAL RECORD --------- PLEASE COMPLETE THE DOCUMENT BEFORE SIGNING Dear TOBIAS Shepard Date: 02/01/18 [employer] Name: Maicol Casillas [employer] / [facility] Phone #[phone] Exercise your independent professional judgment when responding to query. Question asked do not imply a particular answer is desired/expected Clinical Documentation States: "Syncope" documented in: H & P (01/30/18) Patient has also: Hypertension, Epigastric pain, Vomiting, Hx of CVA Cardiology Progress Note: Dr. Fernandez (01/30/18) "Syncope, likely vasovagal vomiting-induced" "History of carotid occlusion and stenosis" "Elevated blood sugar" Clinical Findings Show: NV==326, 67, 85, 93, 102, 120 KF==834/49, 122/47 WBC==15,4, 13.0, 9.0 UA==3+, 2-4, Few Fnbgavf==159, 151,118 Please specify the cause: [] Autonomic Imbalance [] Autonomic Dysfunction [] Orthostatic Hypotension [] Psychogenic [] Shock [] Dehydration [] Dialysis Disequilibrium Syndrome [] Heat [] Other: ,[] Unable to determine, Condition Present on Admission: [] Yes [] No []Clinically Undeterminable Please also document in your Progress Notes and/or Discharge Summary and indicate if the condition was present on admission. Dr. TOBIAS CERRATO Date/Time MTDD
--- NOTE | 2018-02-02 10:29 | Diagnostic Imaging Report ---
APPROVED REPORT CPT Code: 89234 Vascular Symptoms Syncope CVA/TIA: Doppler Spectral Velocity Analysis RightLeft RIGHT SIDE: CCA - The Doppler spectral flow analysis is abnormal (resistive) in the common carotid artery, suggestive of an intracranial occlusion. Imaging reveals near occlusion in the right internal carotid artery Doppler flow is resistive although out. ECA - Imaging reveals irregular plaque in the external carotid artery. The Doppler signal indicates the degree of stenosis is moderate (50%) in the external carotid artery. VERTEBRAL - The vertebral artery is patent, without evidence of stenosis or steal. arteries. The Doppler spectral flow analysis indicates the degree of stenosis is minimal (10%) in the common carotid artery, moderate (50%) in the internal carotid artery, and minimal (30%) in the external carotid artery. VERTEBRAL- The vertebral artery is patent, without evidence of stenosis or steal. The vertebral artery is patent, without evidence of stenosis or steal.
--- NOTE | 2018-02-03 01:30 | Discharge Summary 2 SIG ---
DATE OF ADMISSION: 01/29/2018 DATE OF DISCHARGE: 02/01/2018 CONSULTANTS: 1. Lex Pacheco M.D. 2. Storm Fernandez M.D. 3. Shelton Rhodes M.D. 4. Tomas Peres M.D. BRIEF HOSPITAL COURSE: The patient is an 82-year-old female with medical history of stroke with left-sided hemiparesis, was brought in by ambulance for complaints of syncopal episode. The patient vomited once before syncope and was feeling lightheaded and nauseous before the event. She also had epigastric pain. There was no reported head injury. Denied shortness of breath, palpitations, or chest pain. On evaluation at ED, the patient was given Zofran. Blood work showed leukocytosis. WBC was 15. Initial troponin was 0.08. She had a chest x-ray done that showed no consolidation or effusion. No acute cardiopulmonary disease. EKG was in normal sinus rhythm with T-wave flattening on leads V2 to V3. She was admitted for evaluation of syncope. She had an echocardiogram that showed ejection fraction of 60% to 65%. Carotid ultrasound showed moderate stenoses in the right external carotid artery. She was given Plavix and Lipitor. She had nausea and vomiting. She was given Zofran and Compazine. She had a KUB done that was unremarkable. Her diet was advanced. She had leukocytosis, however, was observed off antibiotic treatment. Leukocytosis eventually resolved. She was given physical and occupational therapy and the patient was eventually discharged back home. FINAL DIAGNOSES: 1. Syncopal episode possibly vasovagal. 2. Vomiting. 3. Hypertension. 4. 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 5. Severe protein-calorie malnutrition. 6. Leukocytosis most likely due to acute stress. 7. Transaminitis. 8. Vascular dementia. 9. Hyperlipidemia. DISPOSITION: The patient was discharged home. DISCHARGE MEDICATIONS: Refer to medication list. DISCHARGE INSTRUCTIONS: Follow up with PMD in a week. Alexander Lima M.D. I have been assigned to dictate discharge summary on this account and I was not involved in the patient's management. Anna Arias N.P. DR: MEGA JOB#: [id number] CC:
== END 2018-02-01 18:58 | disposition home or self-care (01) | DRG 204 ==
LOC: EDBD 18:59 → EMR 19:50 → 2E 21:16 → EDBEDREQ 01-30 01:12 → 4E 01-31 12:17
DX: R55 Syncope and collapse (principal); E43 Unspecified severe protein-calorie malnutrition; I69.354 Hemiplegia and hemiparesis following cerebral infarction affecting left non-dominant side; F01.50 Vascular dementia, unspecified severity, without behavioral disturbance, psychotic disturbance, mood disturbance, and anxiety; I10 Essential (primary) hypertension; R10.13 Epigastric pain; E78.5 Hyperlipidemia, unspecified; R11.2 Nausea with vomiting, unspecified; D72.829 Elevated white blood cell count, unspecified; Z68.21 Body mass index [BMI] 21.0-21.9, adult; I65.21 Occlusion and stenosis of right carotid artery
CPT/HCPCS: 36415; 71045; 74018; 80048; 80053; 80061; 81003; 83735; 83880; 84100; 84443; 84484; 85007; 85025; 85610; 85730; 93005; 93306; 93880; 94664; 99285

== ENCOUNTER 2018-10-16 20:40 | Emergency (ER) | payer MEDICAID ==
[~2018-10-16] VITALS: Ht 142.2 cm; Wt 38.6 kg
[~2018-10-16 20:40] MED LIST: AMLODIPINE BESY10 MG ORAL; ASPIRIN81 MG ORAL; CLOPIDOGREL75 MG ORAL; LIPITOR40 MG ORAL; LISINOPRIL5 MG ORAL; METOPROLOL TAR100 M1 ORAL
[2018-10-16] MEDS ORDERED: BACITRACIN ZIN1 EACH TOPIC (21:54)
[2018-10-16 22:00] VITALS: BP 115/75
--- NOTE | 2018-10-17 05:32 | Emergency Room Report ---
History of Present Illness General Chief Complaint: Skin Rash/Abscess Source: Medical Record Present Illness HPI Patient 83-year-old female presented after increased the blistering to her left elbow. The patient was noted to have prior history of CVA. She was noted to be the wearing a brace to her left forearm. The patient had been noted to have a blister to her left elbow which had become increasingly dark. There is no known recent trauma. Allergies: Coded Allergies: No Known Allergies (Unverified , 01/29/18) Patient History Past Medical History: see triage record : 5 Para: 5 Reviewed Nursing Documentation: PMH: Agreed; PSxH: Agreed Nursing Documentation-PMH Hx Hypertension: Yes Hx Cancer: No Hx Gastrointestinal Problems: No Hx Cerebrovascular Accident: Yes - LEFT SIDED DEFICIT Review of Systems All Other Systems: limited - by poor historian Physical Exam Vital Signs Date Time Temp Pulse Resp B/P (MAP) Pulse Ox O2 Delivery O2 Flow Rate FiO2 10/16/18 20:58 98.4 74 15 128/70 98 Room Air General Appearance: alert, Chronically Ill ENT: moist mucus membranes Neck: limited range of motion Respiratory: chest non-tender, lungs clear, normal breath sounds Cardiovascular #1: no edema Gastrointestinal: normal inspection Musculoskeletal: other - left elbow 1.5 cm skin tear, no active bleeding Neurologic: alert, motor weakness - right side Skin: other - skin tear to left elbow Medical Decision Making Diagnostic Impression: Primary Impression: Skin tear ER Course Patient presented for skin rash. Differential diagnosis included was not limited to hematoma, skin tear, coagulopathy among others. Patient has a benign exam and does not appear to require any further imaging or laboratory testing at this time. The patient appears to have a skin tear which does not appear to be infected. Wound was cleansed and dressed with a sterile dressing. The patient daughter was advised to have the wound rechecked in 1-2 days. Last Vital Signs Date Time Temp Pulse Resp B/P (MAP) Pulse Ox O2 Delivery O2 Flow Rate FiO2 10/16/18 20:58 98.4 74 15 128/70 98 Room Air Status: improved Disposition: HOME, SELF-CARE Condition: Stable Scripts Bacitracin Zinc* (BACITRACIN ZINC*) 1 Each Packet 1 APPLIC TOPIC THREE TIMES A DAY, #10 PACKET Prov: Jeremías Madera MD 10/16/18 Referrals: NON PHYSICIAN (PCP) Patient Instructions: Skin Tear Care Jeremías Madera MD Oct 17, 2018 05:32
== END 2018-10-16 22:00 | disposition home or self-care (01) ==
LOC: EMR 21:52
DX: S51.011A Laceration without foreign body of right elbow, initial encounter (principal); X58.XXXA Exposure to other specified factors, initial encounter; Y92.89 Other specified places as the place of occurrence of the external cause; I10 Essential (primary) hypertension; I69.398 Other sequelae of cerebral infarction
CPT/HCPCS: 99282

== ENCOUNTER 2020-01-29 17:42 | Emergency (ER) | payer MEDICAID ==
[~2020-01-29] VITALS: Ht 147.3 cm; Wt 38.6 kg
[~2020-01-29 17:42] MED LIST changes: +BACITRACIN ZIN1 EACH TOPIC
--- NOTE | 2020-01-29 18:16 | NUR ---
ED Nurse Note: Pt walked in from home d/t sore throat and "dehydration." Pt reports palpitaitons since today. Respirations even and unlabored on room air. Vitals stable as documented.
[2020-01-29 19:13] LABS: EOSINOPHILS % (AUTO) 3.9 % (0.0-3.0); HEMATOCRIT 36.1 % (37.0-47.0); HEMOGLOBIN 12.7 G/DL (12.0-16.0); LYMPHOCYTES % (AUTO) 23.3 % (20.0-45.0); MEAN CORPUSCULAR VOLUME 89 FL (80-99); MONOCYTES % (AUTO) 5.9 % (1.0-10.0); NEUTROPHILS % (AUTO) 65.9 % (45.0-75.0); PLATELET COUNT 199 K/UL (150-450); RED BLOOD COUNT 4.06 M/UL (4.20-5.40); RED CELL DISTRIBUTION WIDTH 10.9 % (11.6-14.8); WHITE BLOOD COUNT 7.9 K/UL (4.8-10.8)
[2020-01-29 19:19] VITALS: BP 159/79
[2020-01-29 19:26] LABS: ANION GAP 8 mmol/L (5-15); BLOOD UREA NITROGEN 15 mg/dL (7-18); CALCIUM 9.6 MG/DL (8.5-10.1); CARBON DIOXIDE 29 MMOL/L (21-32); CHLORIDE 104 MMOL/L (98-107); CREATININE 0.6 MG/DL (0.55-1.30); SODIUM 141 MMOL/L (136-145)
--- NOTE | 2020-01-29 19:30 | NUR ---
ED Nurse Note: Report given to DESIREE Tello
--- NOTE | 2020-01-29 19:35 | NUR ---
ED Nurse Note: received report from Mercy RAMÍREZ. Pt vss, nad, family at bedside. will continue to monitor patient.
[2020-01-29 19:36] LABS: ALANINE AMINOTRANSFERASE 20 U/L (12-78); ALBUMIN 3.6 G/DL (3.4-5.0); ALBUMIN/GLOBULIN RATIO 0.9 (1.0-2.7); ALKALINE PHOSPHATASE 79 U/L (46-116); ASPARTATE AMINO TRANSFERASE 17 U/L (15-37); BILIRUBIN,TOTAL 0.3 MG/DL (0.2-1.0)
[2020-01-29 20:05] VITALS: BP 133/77
--- NOTE | 2020-01-29 20:05 | NUR ---
ER DISCHARGE NOTE: Patient is cleared to be discharged per ERMD, pt is aox4, on room air, with stable vital signs. pt was given dc instructions, pt was able to verbalize understanding, pt id band and iv site removed without complications. pt is able to ambulate with wheelchair accopanied by family member. pt took all belongings.
--- NOTE | 2020-01-29 22:20 | Emergency Room Report ---
History of Present Illness General Chief Complaint: Palpitations Source: Patient Present Illness HPI 84-year-old female presents ED for evaluation. Daughter at bedside states that patient's been having palpitations today. Last for approximately 1 minute then subsides. Was seen by EMS earlier. They did an EKG and stated that patient was okay. Patient denies any chest pain. Denies shortness of breath. Daughter thinks patient may be dehydrated. Patient has no complaints. Compliant with her medications. No other aggravating relieving factors. 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 Review of Systems All Other Systems: negative except mentioned in HPI Physical Exam Vital Signs Date Time Temp Pulse Resp B/P (MAP) Pulse Ox O2 Delivery O2 Flow Rate FiO2 01/29/20 17:50 98.4 55 20 166/78 (107) 95 Room Air Sp02 EP Interpretation: reviewed, normal General Appearance: no apparent distress, alert, GCS 15, non-toxic, thin Head: normocephalic, atraumatic Eyes: bilateral eye normal inspection, bilateral eye PERRL ENT: hearing grossly normal, normal pharynx, no angioedema, normal voice Neck: full range of motion, supple/symm/no masses Respiratory: chest non-tender, lungs clear, normal breath sounds, speaking full sentences Cardiovascular #1: regular rate, rhythm, no edema Cardiovascular #2: 2+ carotid (R), 2+ carotid (L), 2+ radial (R), 2+ radial (L) , 2+ dorsalis pedis (R), 2+ dorsalis pedis (L) Gastrointestinal: normal bowel sounds, non tender, soft, non-distended, no guarding, no rebound Rectal: deferred Genitourinary: normal inspection, no CVA tenderness Musculoskeletal: back normal, normal range of motion, gait/station normal, non- tender Neurologic: alert, motor strength/tone normal, oriented x3, sensory intact, responsive, speech normal Psychiatric: judgement/insight normal, memory normal, mood/affect normal, no suicidal/homicidal ideation Reflexes: 3+ bicep (R), 3+ bicep (L), 3+ tricep (R), 3+ tricep (L), 3+ knee (R) , 3+ knee (L) Lymphatic: no adenopathy Medical Decision Making Diagnostic Impression: Primary Impression: Palpitations ER Course Hospital Course 84-year-old F presents ED complaining of palpitations Differential diagnoses include: afib, Vtach, SVT, anxiety, dehydration Clinical course Patient placed on stretcher. After initial history and physical I ordered labs , EKG, chest x-ray, IVFs. labs reviewed- all electrolytes normal, troponins negative, no leukocytosis, hemoglobin/hematocrit stable EKG - NSR, no acute ischemic changes interpreted by me Chest x-ray-no cardiomegaly, no rib fracture, no pneumothorax, no acute process Discussed findings with daughter and patient. Patient vitals stable during ED course. On stitch wheeler. No signs of tachycardia or arrhythmia. Labs unremarkable. Will discharge to home. Safe for discharge for close outpatient follow-up. States she has a PMD I. I feel this is a highly complex case requiring extensive working including EKG/Rhythm strip, Xray/CT/US, Blood/urine lab work, repeat exams while in ED, and administration of strong opiates/narcotics for pain control, admission to hospital or close patient follow up. Diagnosis - palpitations Stable and discharged to home. Instructed to followup with PMD. Return to ED if symptoms recur or worsen Labs Test 01/29/20 19:00 White Blood Count 7.9 K/UL (4.8-10.8) Red Blood Count 4.06 M/UL (4.20-5.40) Hemoglobin 12.7 G/DL (12.0-16.0) Hematocrit 36.1 % (37.0-47.0) Mean Corpuscular Volume 89 FL (80-99) Mean Corpuscular Hemoglobin 31.2 PG (27.0-31.0) Mean Corpuscular Hemoglobin Concent 35.1 G/DL (32.0-36.0) Red Cell Distribution Width 10.9 % (11.6-14.8) Platelet Count 199 K/UL (150-450) Mean Platelet Volume 7.9 FL (6.5-10.1) Neutrophils (%) (Auto) 65.9 % (45.0-75.0) Lymphocytes (%) (Auto) 23.3 % (20.0-45.0) Monocytes (%) (Auto) 5.9 % (1.0-10.0) Eosinophils (%) (Auto) 3.9 % (0.0-3.0) Basophils (%) (Auto) 1.0 % (0.0-2.0) Sodium Level 141 MMOL/L (136-145) Potassium Level 5.0 MMOL/L (3.5-5.1) Chloride Level 104 MMOL/L (98-107) Carbon Dioxide Level 29 MMOL/L (21-32) Anion Gap 8 mmol/L (5-15) Blood Urea Nitrogen 15 mg/dL (7-18) Creatinine 0.6 MG/DL (0.55-1.30) Estimat Glomerular Filtration Rate > 60 mL/min (>60) Glucose Level 118 MG/DL (74-106) Calcium Level 9.6 MG/DL (8.5-10.1) Total Bilirubin 0.3 MG/DL (0.2-1.0) Aspartate Amino Transf (AST/SGOT) 17 U/L (15-37) Alanine Aminotransferase (ALT/SGPT) 20 U/L (12-78) Alkaline Phosphatase 79 U/L (46-116) Troponin I 0.000 ng/mL (0.000-0.056) Pro-B-Type Natriuretic Peptide 1698 pg/mL (0-125) Total Protein 7.4 G/DL (6.4-8.2) Albumin 3.6 G/DL (3.4-5.0) Globulin 3.8 g/dL Albumin/Globulin Ratio 0.9 (1.0-2.7) EKG Diagnostic Results Rate: normal Rhythm: NSR ST Segments: no acute changes ASA given to the pt in ED: No Rhythm Strip Diag. Results EP Interpretation: yes Rhythm: NSR, no PVC's, no ectopy Chest X-Ray Diagnostic Results Chest X-Ray Diagnostic Results : Chest X-Ray Ordered: Yes # of Views/Limited/Complete: 1 View Indication: Other EP Interpretation: Yes Interpretation: no consolidation, no effusion, no pneumothorax, no acute cardiopulmonary disease Impression: No acute disease Electronically Signed by: Electronically signed by Spencer Mann MD Last Vital Signs Date Time Temp Pulse Resp B/P (MAP) Pulse Ox O2 Delivery O2 Flow Rate FiO2 01/29/20 20:05 98.3 77 16 133/77 98 Room Air Status: improved Disposition: HOME, SELF-CARE Condition: Stable Referrals: [facility],REFERR[facility] (PCP) Patient Instructions: Palpitations, [id number]-[id number] Spencer Mann MD Jan 29, 2020 22:20
--- NOTE | 2020-01-30 10:31 | Diagnostic Imaging Report ---
Indication: Dyspnea Comparison: 01/29/2018 A single view chest radiograph was obtained. Findings: Interstitium may be mildly prominent but this is likely chronic. Heart size is normal. Bones are osteopenic. Aorta is calcified. Vertebral endplate osteophytes noted multiple levels. IMPRESSION: No acute findings
== END 2020-01-29 20:05 | disposition home or self-care (01) ==
LOC: EMR 18:30
DX: R00.2 Palpitations (principal); I10 Essential (primary) hypertension; I69.398 Other sequelae of cerebral infarction
CPT/HCPCS: 36415; 71045; 80053; 83880; 84484; 85025; 93005; J7040; Z7502; 99284